=== PATIENT | female | born 1950 | race Caucasian/White ===

== ENCOUNTER → 2019-08-03 | Outpatient (CLI) | payer BC ==
--- NOTE | 2019-08-07 12:14 | HM ---
HOLTER MONITOR REPORT A 68-year-old female complaining of palpitations, shortness of breath. A 48 hour Holter monitor shows sinus mechanism, heart ranging from 57-115 beats, average 75 beats per minute, occasional PACs and sinus arrhythmia. No significant arrhythmias. CHALO / NELIN: [id number] /
== END | disposition home or self-care (01) ==
LOC: RADECHMAIN 12:02
PROVIDERS: ATTEND Internal Medicine
DX: R00.2 Palpitations (principal); R06.02 Shortness of breath
CPT/HCPCS: 93225; 93226

== ENCOUNTER → 2020-03-21 | Outpatient (CLI) | payer BC ==
[2020-03-21 12:51] VITALS: BP 153/82; PULSE 88; RESP 18; TEMP 97.8
--- NOTE | 2020-04-18 14:32 | P.PAINCN ---
History of Present Illness - Reason for Consult Consult date: 03/21/20 - History of Present Illness 69-year-old female who presents to the [facility] pain clinic. She was previously a patient of Dr. Cosme Booth. She has a diagnosis of complex regional pain syndrome of the right upper extremity. Dr. Booth had been treating her with stellate ganglion blocks. She had a series of 8 done once weekly over 5 years ago. She states that her pain completely resolved after the eighth injection. It has lasted up until 2-3 months ago. She describes very similar symptoms to the initial onset of her CRPS. She is having allodynia, hyperalgesia, blanching of her skin in her right forearm down to her right hand. She is requesting another stellate ganglion block series. Review of Systems 14 pt review of systems negative except as mentioned in HPI Past Medical History Past Medical History: Hyperlipidemia, Musculoskeletal Disorder, Osteoarthritis (OA), Thyroid Disorder Additional Past Medical History / Comment(s): Hx arrythmia 2019 - told to stop levoxyl, now improved. Old hx RSD in Rt arm w/ tx; pain resumed recently in arm, sl tingling & edema. History of Any Multi-Drug Resistant Organisms: None Reported Past Surgical History: Hysterectomy Additional Past Surgical History / Comment(s): Eye surg as infant. Multiple pain proc w/ stellate ganglion nerve blocks. Past Anesthesia/Blood Transfusion Reactions: No Reported Reaction Smoking Status: Former smoker Past Alcohol Use History: Daily Additional Past Alcohol Use History / Comment(s): Smoked on/off since age 15, 1/2 ppd est, quit 2017. Couple glasses of wine daily. Past Drug Use History: None Reported - Past Family History Mother Family Medical History: No Reported History Medications and Allergies Home Medications Medication Instructions Recorded Confirmed Type Ascorbic Acid/Multivit-Min 1,000 mg PO DAILY 03/18/20 04/01/20 History [Emergen-C 1,000 mg Packet] Aspirin [Adult Low Dose Aspirin EC] 81 mg PO DAILY 03/18/20 04/01/20 History Atorvastatin Calcium [Lipitor] 20 mg PO DAILY 03/18/20 04/01/20 History Calcium Carbonate/Vitamin D3 2 each PO DAILY 03/18/20 04/01/20 History [Calcium 600-Vit D3 100 mcg (400 Iu)] Multivitamins, Thera [Multivitamin 1 tab PO DAILY 03/18/20 04/01/20 History (formulary)] Acetaminophen/Diphenhydramine 1 tab PO HS 04/01/20 04/01/20 History [Tylenol PM 500-25mg] Ascorbic Acid/Multivit-Min 1,000 mg PO DAILY 04/01/20 04/01/20 History [Emergen-C 1,000 mg Packet] Allergies Allergy/AdvReac Type Severity Reaction Status Date / Time codeine Allergy Nausea & Verified 04/05/20 06:39 Vomiting Penicillins Allergy Rash/Hives Verified 04/05/20 06:39 Physical Exam Vitals: Vital Signs Temp Pulse Resp BP Pulse Ox 03/21/20 12:45 97.8 F 88 18 153/82 99 - Constitutional General appearance: average body habitus, cooperative, thin - EENT Eyes: PERRLA, fundus normal ENT: hearing grossly normal, normal oropharynx - Neck Neck: normal ROM - Cardiovascular Rhythm: regular - Musculoskeletal ROM preserved bilateral upper extremities. Strenght equal and symmetrical. - Psychiatric Psychiatric: A&O x's 3, appropriate affect, intact judgment & insight hyperalgesia, and hyperpigmentation along lateral aspect of right hand. Diminshed hair growth, glossy skin appearance. Assessment and Plan Assessment: 1. Complex regional pain syndrome type 2 - plan is to proceed with stellate ganglion blocks on the right. Patient aware of the risks and benefits of the procedure. we discussed in detail. I also mentioned patient may not be able to get 8 stellate ganglion block week after week like before. She understands. PQRS Measure Charge Sheet PQRS Narrative: Blood Pressure 153/82 Pain Intensity [Right Arm] 8 Scale Used Numeric (1 - 10) Hx Alcohol Use (MH) Yes Home Medications: Ambulatory Orders Ascorbic Acid/Multivit-Min [Emergen-C 1,000 mg Packet] 1,000 mg PO DAILY 03/18/20 Aspirin [Adult Low Dose Aspirin EC] 81 mg PO DAILY 03/18/20 Atorvastatin Calcium [Lipitor] 20 mg PO DAILY 03/18/20 Calcium Carbonate/Vitamin D3 [Calcium 600-Vit D3 100 mcg (400 Iu)] 2 each PO DAILY 03/18/20 Multivitamins, Thera [Multivitamin (formulary)] 1 tab PO DAILY 03/18/20 Acetaminophen/Diphenhydramine [Tylenol PM 500-25mg] 1 tab PO HS 04/01/20 Ascorbic Acid/Multivit-Min [Emergen-C 1,000 mg Packet] 1,000 mg PO DAILY 04/01/20
== END | disposition home or self-care (01) ==
LOC: PNWHC3 12:39
PROVIDERS: ATTEND Anesthesiology
DX: G56.41 Causalgia of right upper limb (principal); E78.5 Hyperlipidemia, unspecified; M19.90 Unspecified osteoarthritis, unspecified site; Z79.82 Long term (current) use of aspirin; Z79.899 Other long term (current) drug therapy; Z88.0 Allergy status to penicillin; Z88.5 Allergy status to narcotic agent
CPT/HCPCS: 99211

== ENCOUNTER 2020-04-05 06:27 | Day surgery (SDC) | payer BC ==
[2020-04-01 16:21] VITALS: BMI 23.3
[2020-04-05 06:50] VITALS: TEMP 97
[2020-04-05] MEDS ORDERED: LACTATED RINGERS 1,000 ML IV ONE (06:50)
[2020-04-05] MEDS ORDERED: ROPIVACAINE 5MG/ML 20ML VIAL ONE (07:25)
[2020-04-05] MEDS ORDERED: methylPREDNISolone ACETATE 40 MG/ML 1 ML VIAL ONE (07:25)
[2020-04-05] MEDS ORDERED: MIDAZOLAM 2 MG/2 ML VIAL ONE (07:25)
[2020-04-05] MEDS ORDERED: fentaNYL (PF) 50 MCG/ML 2 ML AMP ONE (07:25)
[2020-04-05] MEDS ORDERED: IV FLUID CONTINUATION 700 ML IV ONE (07:48)
[2020-04-05 08:13] VITALS: BP 145/84; PULSE 80; RESP 20
--- NOTE | 2020-04-05 15:48 | P.PCN ---
Date of Procedure: 04/05/20 Description of Procedure: Procedure note: Stellate ganglion block Attending physician: Ray Valentino MD Preoperative Diagnosis: CRPS1 Postoperative Diagnosis: CRPS1 Sedation: local anesthetic with 1% lidocaine along with fentanyl and versed, sedation time EBL: 0 ULTRASOUND WAS USED The patient with a clinical picture consistent with complex regional pain syndrome of the right upper extremity The patient was greeted in the preprocedure holding area. After verification of the availability of a special education bus driver and nothing by mouth status, the risks benefits and alternatives to the procedure were reviewed with the patient. Verbal informed consent was obtianed as well as a written informed consent placed in the chart. Prior to the procedure time out was done verify correct patient, procedure, site, positioning. An IV line was placed preoperatively and normal saline was attached to the patient. The patient was laid supine on the stretcher. Routine monitors were applied including EKG leads, blood pressure cuff, and pulse oximetry. Ultrasound was used to identify the trachea, thyroid gland, jugular vein, carotid artery and anterior tubercle of C6 on the right side. The longus coli muscle and fascia were also clearly visible. The skin over this site was prepped and draped in the usual sterile fashion. The overlying skin and subcutaneous tissue was anesthetized with 2 mL of 1% lidocaine using a 27- gauge needle. Then a 22-gauge 100 mm Pajunk needle was advanced under ultrasound guidance from the lateral to medial using in plane technique over the anterior tubercle of C6 until the tip was situated in the subfascial plane in the longus coli muscle. Hydrodissection with normal saline was utilized to confirm placement of the needle tip in this location. At this point a total of 10 mL volume of treatment injectate consisting of 9 mL of ropivacaine 0.5% and 40 mg of Depo-Medrol was injected easily. The needle was then flushed with 1 mL of preservative free normal saline. The needle insertion site was dressed appropriately. The patient remained hemodynamically stable, and there were no complications. Patient was taken to the recovery room with her monitored for a brief period of time. Patient tolerated the procedure well and was discharged home in stable condition with post procedure instructions. Followup: repeat in 1-2 weeks
== END 2020-04-05 08:15 | disposition home or self-care (01) ==
LOC: ORPAIN 06:27
PROVIDERS: ATTEND Anesthesiology
DX: G90.511 Complex regional pain syndrome I of right upper limb (principal); Z88.5 Allergy status to narcotic agent; Z88.0 Allergy status to penicillin
CPT/HCPCS: 64510; J2250; J1030; J3010; J2795; 99152

== ENCOUNTER 2020-04-26 06:10 | Day surgery (SDC) | payer BC ==
[2020-04-21 15:20] VITALS: BMI 23.3
[~2020-04-26 06:10] MED LIST: LACTATED RINGERS 1,000 ML IV SCH
[2020-04-26 06:37] VITALS: RESP 16; TEMP 97.8
[2020-04-26] MEDS ORDERED: LIDOCAINE 1% (10MG/ML) FOR IV START INTRADERMA ONE (06:38)
[2020-04-26] MEDS ORDERED: ROPIVACAINE 5MG/ML 20ML VIAL ONE (07:22)
[2020-04-26] MEDS ORDERED: methylPREDNISolone ACETATE 40 MG/ML 1 ML VIAL ONE (07:22)
[2020-04-26] MEDS ORDERED: MIDAZOLAM 2 MG/2 ML VIAL ONE (07:22)
[2020-04-26] MEDS ORDERED: fentaNYL (PF) 50 MCG/ML 2 ML AMP ONE (07:22)
[2020-04-26] MEDS ORDERED: IV FLUID CONTINUATION 1,000 ML IV ONE (07:42)
--- NOTE | 2020-04-26 07:44 | P.PCN ---
Date of Procedure: 04/26/20 Procedure(s) Performed: PROCEDURES: Right Stellate ganglion block under ultrasopund guidance. PREOPERATIVE DIAGNOSIS: Complex regional pain syndrome type I Right upper extremity POSTOPERATIVE DIAGNOSIS: Same as the preop diagnosis ANESTHESIA: Moderate sedation with intravenous Versed 3 mg and Fentanyl 100 Mcg EBL: None. COMPLICATIONS: None. INDICATION: The patient presents with H&N cancer and symptoms suggestive of CRPS of the right arm here for diagnostic and therapeutic block PROCEDURE DESCRIPTION: The patient with a clinical picture consistent with complex regional pain syndrome of the right upper extremity The patient was greeted in the preprocedure holding area. After verification of the availability of a driver guide and nothing by mouth status, the risks benefits and alternatives to the procedure were reviewed with the patient. Verbal informed consent was obtianed as well as a written informed consent placed in the chart. Prior to the procedure time out was done verify correct patient, procedure, site, positioning. An IV line was placed preoperatively and normal saline was attached to the patient. The patient was laid supine on the stretcher. Routine monitors were applied including EKG leads, blood pressure cuff, and pulse oximetry. Ultrasound was used to identify the trachea, thyroid gland, jugular vein, carotid artery and anterior tubercle of C6 on the right side. The longus coli muscle and fascia were also clearly visible. The skin over this site was prepped and draped in the usual sterile fashion. The overlying skin and subcutaneous tissue was anesthetized with 2 mL of 1% lidocaine using a 27- gauge needle. Then a 22-gauge 100 mm Pajunk needle was advanced under ultrasound guidance from the lateral to medial using in plane technique over the anterior tubercle of C6 until the tip was situated in the subfascial plane in the longus coli muscle. Hydrodissection with normal saline was utilized to confirm placement of the needle tip in this location. At this point a total of 10 mL volume of treatment injectate consisting of 9 mL of ropivacaine 0.5% and 40 mg of Depo-Medrol was injected easily. The needle was then flushed with 1 mL of preservative free normal saline. The needle insertion site was dressed appropriately. The pa tient remained hemodynamically stable, and there were no complications. Patient was taken to the recovery room with her monitored for a brief period of time. Patient tolerated the procedure well and was discharged home in stable condition with post procedure instructions. Followup: repeat in 1-2 weeks
[2020-04-26 07:58] VITALS: BP 120/57; PULSE 70
== END 2020-04-26 08:15 | disposition home or self-care (01) ==
LOC: ORPAIN 06:10
PROVIDERS: ATTEND Specialist
DX: G90.511 Complex regional pain syndrome I of right upper limb (principal); Z90.710 Acquired absence of both cervix and uterus; Z88.0 Allergy status to penicillin; Z88.5 Allergy status to narcotic agent
CPT/HCPCS: 64510; J2250; J1030; J3010; J2795; 99152

== ENCOUNTER 2020-05-12 07:24 | Day surgery (SDC) | payer BC ==
[2020-05-09 15:24] VITALS: BMI 23.2
[2020-05-12 07:44] VITALS: TEMP 97.2
[2020-05-12] MEDS ORDERED: LIDOCAINE 1% (10MG/ML) FOR IV START INTRADERMA ONE (07:50)
[2020-05-12] MEDS ORDERED: ROPIVACAINE 5MG/ML 20ML VIAL ONE (08:11)
[2020-05-12] MEDS ORDERED: MIDAZOLAM 2 MG/2 ML VIAL ONE (08:11)
[2020-05-12] MEDS ORDERED: methylPREDNISolone ACETATE 40 MG/ML 1 ML VIAL ONE (08:11)
[2020-05-12] MEDS ORDERED: fentaNYL (PF) 50 MCG/ML 2 ML AMP ONE (08:11)
--- NOTE | 2020-05-12 08:28 | P.PCN ---
Date of Procedure: 05/12/20 Procedure(s) Performed: PROCEDURES: Right Stellate ganglion block under ultrasopund guidance. PREOPERATIVE DIAGNOSIS: Complex regional pain syndrome type I Right upper extremity POSTOPERATIVE DIAGNOSIS: Same as the preop diagnosis ANESTHESIA: Moderate sedation with intravenous Versed 3 mg and Fentanyl 100 Mcg EBL: None. COMPLICATIONS: None. INDICATION: The patient presents with H&N cancer and symptoms suggestive of CRPS of the right arm here for diagnostic and therapeutic block PROCEDURE DESCRIPTION: The patient with a clinical picture consistent with complex regional pain syndrome of the right upper extremity The patient was greeted in the preprocedure holding area. After verification of the availability of a ready mix truck driver and nothing by mouth status, the risks benefits and alternatives to the procedure were reviewed with the patient. Verbal informed consent was obtianed as well as a written informed consent placed in the chart. Prior to the procedure time out was done verify correct patient, procedure, site, positioning. An IV line was placed preoperatively and normal saline was attached to the patient. The patient was laid supine on the stretcher. Routine monitors were applied including EKG leads, blood pressure cuff, and pulse oximetry. Ultrasound was used to identify the trachea, thyroid gland, jugular vein, carotid artery and anterior tubercle of C6 on the right side. The longus coli muscle and fascia were also clearly visible. The skin over this site was prepped and draped in the usual sterile fashion. The overlying skin and subcutaneous tissue was anesthetized with 2 mL of 1% lidocaine using a 27- gauge needle. Then a 22-gauge 50 mm Pajunk needle was advanced under ultrasound guidance from the lateral to medial using in plane technique over the anterior tubercle of C6 until the tip was situated in the subfascial plane in the longus coli muscle. Hydrodissection with normal saline was utilized to confirm placement of the needle tip in this location. At this point a total of 10 mL volume of treatment injectate consisting of 9 mL of ropivacaine 0.5% and 40 mg of Depo-Medrol was injected easily. The needle was then flushed with 1 mL of preservative free normal saline. The needle insertion site was dressed appropriately. The patient remained hemodynamically stable, and there were no complications. Patient was taken to the recovery room with her monitored for a brief period of time. Patient tolerated the procedure well and was discharged home in stable condition with post procedure instructions. Followup: repeat in 1-2 weeks
[2020-05-12] MEDS ORDERED: IV FLUID CONTINUATION 600 ML IV ONE (08:31)
[2020-05-12 08:46] VITALS: BP 114/76; PULSE 76; RESP 20
== END 2020-05-12 09:01 | disposition home or self-care (01) ==
LOC: ORPAIN 07:24
PROVIDERS: ATTEND Specialist
DX: G90.511 Complex regional pain syndrome I of right upper limb (principal); Z88.5 Allergy status to narcotic agent; Z88.0 Allergy status to penicillin
CPT/HCPCS: 64510; 76942; J2250; J1030; J3010; J2795; 99152

== ENCOUNTER → 2020-06-01 | Outpatient (CLI) | payer BC ==
[2020-06-01 13:59] VITALS: BP 128/79; PULSE 82; RESP 16; TEMP 97.7
--- NOTE | 2020-06-01 14:00 | P.PN ---
Subjective Progress Note Date: 06/01/20 Brenda is 69-year-old female who presents today for follow-up after having 3 stellate ganglion blocks. She had CRPS of the right arm from a tendon rupture. She reports that she has about 90-95% relief from the current injections. She is very happy with the results. She is not using any medications. She denies any significant allodynia or any significant pain in the arm. She's been able to wear long sleeves again. She been able to lift objects. Review of Systems: Denies any New chest pain, short of breath, Nausea/vomitting, abdominal pain, bowel or bladder incontinence, or any overt new neurologic symptoms in his upper or lower extremities. Objective - Exam PHYSICAL EXAM: Constitutional: Awake and alert no distress Cardiovascular exam: Regular rate, no lower extremity edema, palpable pulses bilaterally Respiratory exam: No audible wheezing, no accessory muscle usage Right upper extremity: Skin appears normal, there is no allodynia, range of motion is normal. Strength is normal. Slight bulge over the area of the tendon rupture in the mid forearm. Neuro exam: Normal sensation bilateral upper and lower extremities. Deep tendon reflexes are 2+ bilaterally. Psychiatric exam: Cooperative, good insight Assessment and Plan Assessment: CRPS right upper extremity Plan: Patient will follow up as needed in the future. If we need to repeat the injections she will be giving us a call at that time.
== END ==
LOC: PNWHC3 13:46
PROVIDERS: ATTEND Hospitalist
DX: G90.511 Complex regional pain syndrome I of right upper limb (principal)
CPT/HCPCS: 99211

== ENCOUNTER → 2020-07-06 | Outpatient (CLI) | payer BC ==
--- NOTE | 2020-07-06 14:26 | P.PAINPG ---
Subjective Progress Note Date: 07/06/20 Brenda is 69-year-old female who presents today for follow-up. To recap she has had 3 stellate ganglion blocks. She had CRPS of the right arm from a tendon rupture. She reported that she had about 90-95% relief from the current injections. General her injections of work very well, however unfortunately her pain is returned. Injections last about a month until pain come back. She is experiencing decreased range of motion, allodynia and a warm feeling in her right arm. Not doing any current physical therapy. She is very happy with the results. She is not using any medications. She denies any significant allodynia or any significant pain in the arm. She's been able to wear long sleeves again. She been able to lift objects. Review of Systems: Denies any New chest pain, short of breath, Nausea/vomitting, abdominal pain, bowel or bladder incontinence, or any overt new neurologic sym ptoms in his upper or lower extremities. Objective - Exam PHYSICAL EXAM: Constitutional: Awake and alert no distress Cardiovascular exam: Regular rate, no lower extremity edema, palpable pulses bilaterally Respiratory exam: No audible wheezing, no accessory muscle usage Right upper extremity: Skin appears normal, there is no allodynia, range of motion is limited Strength is decreased Slight bulge over the area of the tendon rupture in the mid forearm. Neuro exam: Normal sensation bilateral upper and lower extremities. Deep tendon reflexes are 2+ bilaterally. Psychiatric exam: Cooperative, good insight Assessment and Plan Assessment: CRPS right upper extremity Plan: Repeat stellate ganglion block on the right side. Patient had a question in terms of how many of these she needs until she gets full relief. She commented that in the past she had 8 of them total and then she had good relief for 5 years. I told her that in general it is hard to say how many of these she will need until she has long lasting relief, commenting that she may never have long- lasting relief and may just need these repeated over and over. There is a thought to performing chemical neurolysis of the stellate ganglion however at this time we will repeat the injection and consider that option in the future.. I have spent 28 minutes on patient care today. The time was used to review the medical records including relevant urine studies and prescription history, review of the available imaging, evaluation and examination of the patient, coordination of care with medical staff and if applicable referring physicians, as well as creation of the medical record. Objective - Vital Signs Vital signs: Intake & Output 07/04/20 07/05/20 07/05/20 18:59 06:59 18:59 Weight 56.245 kg PQRS Measure Charge Sheet PQRS Narrative: Pain Intensity [Neck] 8 Hx Alcohol Use (MH) Yes: Daily Home Medications: Ambulatory Orders Aspirin [Adult Low Dose Aspirin EC] 81 mg PO DAILY 03/18/20 Atorvastatin Calcium [Lipitor] 20 mg PO DAILY 03/18/20 Calcium Carbonate/Vitamin D3 [Calcium 600-Vit D3 100 mcg (400 Iu)] 2 each PO DAILY 03/18/20 Multivitamins, Thera [Multivitamin (formulary)] 1 tab PO DAILY 03/18/20 Acetaminophen/Diphenhydramine [Tylenol PM 500-25mg] 1 tab PO HS 04/01/20 Ascorbic Acid/Multivit-Min [Emergen-C 1,000 mg Packet] 1,000 mg PO DAILY 04/01/20 Controlled Substance Measures - Controlled Substance Measures Is patient prescribed a controlled substance at discharge?: No
[2020-07-06 14:29] VITALS: BP 117/70; PULSE 81; RESP 18; TEMP 97.4
== END ==
LOC: PNWHC3 13:49
PROVIDERS: ATTEND Anesthesiology
DX: G90.511 Complex regional pain syndrome I of right upper limb (principal)
CPT/HCPCS: 99211

== ENCOUNTER 2020-07-26 06:06 | Day surgery (SDC) | payer BC ==
[2020-07-25 09:30] VITALS: BMI 22.6
[2020-07-26] MEDS ORDERED: LACTATED RINGERS 1,000 ML IV ONE ×2 (06:18)
[2020-07-26] MEDS ORDERED: LACTATED RINGERS 1,000 ML IV SCH (06:23)
[2020-07-26] MEDS ORDERED: LIDOCAINE 1% (10MG/ML) FOR IV START INTRADERMA ONE (06:30)
[2020-07-26 06:36] VITALS: TEMP 97.9
[2020-07-26] MEDS ORDERED: MIDAZOLAM 2 MG/2 ML VIAL ONE (07:07)
[2020-07-26] MEDS ORDERED: ROPIVACAINE 5MG/ML 20ML VIAL ONE (07:07)
[2020-07-26] MEDS ORDERED: fentaNYL (PF) 50 MCG/ML 2 ML AMP ONE (07:07)
[2020-07-26] MEDS ORDERED: methylPREDNISolone ACETATE 40 MG/ML 1 ML VIAL ONE (07:07)
[2020-07-26] MEDS ORDERED: IV FLUID CONTINUATION 1,000 ML IV ONE (07:25)
[2020-07-26 07:53] VITALS: BP 110/78; PULSE 78; RESP 18
--- NOTE | 2020-07-26 07:53 | P.PCN ---
Date of Procedure: 07/26/20 Procedure(s) Performed: PROCEDURES: Right Stellate ganglion block under ultrasopund guidance. PREOPERATIVE DIAGNOSIS: Complex regional pain syndrome type I Right upper extremity POSTOPERATIVE DIAGNOSIS: Same as the preop diagnosis ANESTHESIA: Moderate sedation with intravenous Versed 2 mg and Fentanyl 100 Mcg EBL: None. COMPLICATIONS: None. INDICATION: The patient presents with H&N cancer and symptoms suggestive of CRPS of the right arm here for diagnostic and therapeutic block PROCEDURE DESCRIPTION: The patient with a clinical picture consistent with complex regional pain syndrome of the right upper extremity The patient was greeted in the preprocedure holding area. After verification of the availability of a wheat combine driver and nothing by mouth status, the risks benefits and alternatives to the procedure were reviewed with the patient. Verbal informed consent was obtianed as well as a written informed consent placed in the chart. Prior to the procedure time out was done verify correct patient, procedure, site, positioning. An IV line was placed preoperatively and normal saline was attached to the patient. The patient was laid supine on the stretcher. Routine monitors were applied including EKG leads, blood pressure cuff, and pulse oximetry. Ultrasound was used to identify the trachea, thyroid gland, jugular vein, carotid artery and anterior tubercle of C6 on the right side. The longus coli muscle and fascia were also clearly visible. The skin over this site was prepped and draped in the usual sterile fashion. The overlying skin and subcutaneous tissue was anesthetized with 2 mL of 1% lidocaine using a 27- gauge needle. Then a 22-gauge 50 mm Pajunk needle was advanced under ultrasound guidance from the lateral to medial using in plane technique over the anterior tubercle of C6 until the tip was situated in the subfascial plane in the longus coli muscle. Hydrodissection with normal saline was utilized to confirm placement of the needle tip in this location. At this point a total of 10 mL volume of treatment injectate consisting of 9 mL of ropivacaine 0.5% and 40 mg of Depo-Medrol was injected easily. The needle was then flushed with 1 mL of preservative free normal saline. The needle insertion site was dressed appropriately. The patient remained hemodynamically stable, and there were no complications. Patient was taken to the recovery room with her monitored for a brief period of time. Patient tolerated the procedure well and was discharged home in stable condition with post procedure instructions. Followup: repeat in 2-3 weeks ,in the future would consider doing pulsed RFA of the right stellate ganglion block ,if it is approved by her insurance
== END 2020-07-26 07:59 | disposition home or self-care (01) ==
LOC: ORPAIN 06:06
PROVIDERS: ATTEND Specialist
DX: G90.511 Complex regional pain syndrome I of right upper limb (principal); Z88.5 Allergy status to narcotic agent; Z88.0 Allergy status to penicillin
CPT/HCPCS: 64510; J2250; J1030; J3010; J2795; 99152

== ENCOUNTER → 2020-08-22 | Outpatient (CLI) | payer BC ==
[2020-08-22 13:52] VITALS: BP 118/77; PULSE 70; RESP 16; TEMP 98
--- NOTE | 2020-08-22 14:08 | P.PN ---
Subjective Progress Note Date: 08/22/20 This is 69-year-old female, She has a diagnosis of complex regional pain syndrome of the right upper extremity. Previously we have done stellate ganglion blocks. x4 she gets excellent pain relief after each block , she had 0 pain after the block for more than 2 weeks . She is having allodynia, hyperal gesia, blanching of her skin in her right forearm down to her right hand. She is requesting another stellate ganglion block series. - Past Family History Mother Family Medical History: No Reported History - Constitutional General appearance: average body habitus, cooperative, thin - EENT Eyes: PERRLA, fundus normal ENT: hearing grossly normal, normal oropharynx - Neck Neck: normal ROM - Cardiovascular Rhythm: regular - Musculoskeletal ROM preserved bilateral upper extremities. Strenght equal and symmetrical. Positive allodynia ,and dysesthesia right upper extremity - Psychiatric Psychiatric: A&O x's 3, appropriate affect, intact judgment & insight hyperalgesia, and hyperpigmentation along lateral aspect of right hand. Diminshed hair growth, glossy skin appearance. Assessment and Plan Assessment: 1. Complex regional pain syndrome plan is to proceed with pulse radiofrequency stellate ganglion blocks on the right. Patient aware of the risks and benefits of the procedure. we discussed in detail. Objective - Vital Signs Vital signs: Vital Signs Temp 98.0 F 08/22/20 13:48 Pulse 70 08/22/20 13:48 Resp 16 08/22/20 13:48 BP 118/77 08/22/20 13:48 Pulse Ox 97 08/22/20 13:48
== END ==
LOC: PNWHC3 13:18
PROVIDERS: ATTEND Specialist
DX: G90.50 Complex regional pain syndrome I, unspecified (principal); Z88.0 Allergy status to penicillin; Z88.5 Allergy status to narcotic agent
CPT/HCPCS: 99211

== ENCOUNTER 2020-09-20 06:17 | Day surgery (SDC) | payer BC ==
[2020-09-16 16:10] VITALS: BMI 21.4
[2020-09-20 06:49] VITALS: TEMP 97.9
[2020-09-20] MEDS ORDERED: LACTATED RINGERS 1,000 ML IV ONE ×2 (07:00)
[2020-09-20] MEDS ORDERED: LIDOCAINE 1% (10MG/ML) FOR IV START INTRADERMA ONE (07:01)
[2020-09-20] MEDS ORDERED: ROPIVACAINE 5MG/ML 20ML VIAL ONE (07:30)
[2020-09-20] MEDS ORDERED: DEXAMETHASONE SOD PHOSPHATE 10 MG/ML 1 ML VIAL ONE (07:30)
[2020-09-20] MEDS ORDERED: MIDAZOLAM 2 MG/2 ML VIAL ONE (07:30)
[2020-09-20] MEDS ORDERED: fentaNYL (PF) 50 MCG/ML 2 ML AMP ONE (07:30)
[2020-09-20] MEDS ORDERED: IV FLUID CONTINUATION 1,000 ML IV ONE ×3 (07:58)
--- NOTE | 2020-09-20 08:00 | P.PCN ---
Date of Procedure: 09/20/20 Description of Procedure: Procedure note: Stellate ganglion block Attending physician: Tani Palacios MD Preoperative Diagnosis: CRPS1 Postoperative Diagnosis: CRPS1 Sedation: local anesthetic with 1% lidocaine along with fentanyl and versed, EBL: 0 ULTRASOUND WAS USED The patient with a clinical picture consistent with complex regional pain syndrome of the right upper extremity The patient was greeted in the preprocedure holding area. After verification of the availability of a route cdl driver and nothing by mouth status, the risks benefits and alternatives to the procedure were reviewed with the patient. Verbal informed consent was obtianed as well as a written informed consent placed in the chart. Prior to the procedure time out was done verify correct patient, procedure, site, positioning. An IV line was placed preoperatively and normal saline was attached to the patient. The patient was laid supine on the stretcher. Routine monitors were applied including EKG leads, blood pressure cuff, and pulse oximetry. Ultrasound was used to identify the trachea, thyroid gland, jugular vein, carotid artery and anterior tubercle of C6 on the right side. The longus coli muscle and fascia were also clearly visible. The skin over this site was prepped and draped in the usual sterile fashion. The overlying skin and subcutaneous tissue was anesthetized with 2 mL of 1% lidocaine using a 27- gauge needle. Then a 22-gauge 100 mm Pajunk needle was advanced under ultrasound guidance from the lateral to medial using in plane technique over the anterior tubercle of C6 until the tip was situated in the subfascial plane in the longus coli muscle. Hydrodissection with normal saline was utilized to confirm placement of the needle tip in this location as well as direct visualization of solution spread from the needle tip. At this point a total of 10 mL volume of treatment injectate consisting of 9 mL of ropivacaine 0.5% and 10 mg of Dexamethasone was injected easily with frequent negative aspiration every 2ml and pauses for patient comfort. The needle insertion site was dressed appropriately. The patient remained hemodynamically stable, and there were no complications. Ultrasound guidance was utilized for direct continuous visualization of block needle as well as direct medication visualization of medication spread. Patient was taken to the recovery room with her monitored for a brief period of time. Patient tolerated the procedure well and was discharged home in stable condition with post procedure instructions. Followup: repeat in 1-2 weeks
[2020-09-20 08:01] VITALS: RESP 18
[2020-09-20 08:22] VITALS: BP 111/66; PULSE 67
== END 2020-09-20 08:30 | disposition home or self-care (01) ==
LOC: ORPAIN 06:17
PROVIDERS: ATTEND Anesthesiology
DX: G90.511 Complex regional pain syndrome I of right upper limb (principal)
CPT/HCPCS: 64510; J2250; J1100; J3010; J2795; 99152

== ENCOUNTER 2020-09-20 20:44 | Emergency (ER) | payer BC, MEDICARE ==
[2020-09-20 20:55] VITALS: TEMP 98
[2020-09-20] MEDS ORDERED: SODIUM CHLORIDE 0.9% 1,000 ML IV STA (21:50)
[2020-09-20] MEDS ORDERED: ONDANSETRON 4 MG/2 ML VIAL IVP STA (21:50)
[2020-09-20] MEDS ORDERED: KETOROLAC 15 MG/ML 1 ML VIAL IVP STA (21:50)
[2020-09-20 22:23] LABS: Basophils % (A) 0 %; Eosinophils # (A) 0.1 k/uL (0-0.7); Eosinophils % (A) 1 %; HCT 40.3 % (34.0-46.0); HGB 13.8 gm/dL (11.4-16.0); Lymphocytes # (A) 0.9 k/uL (1.0-4.8); Lymphocytes % (A) 12 %; MCH 32.2 pg (25.0-35.0); MCHC 34.3 g/dL (31.0-37.0); MCV 93.9 fL (80.0-100.0); Monocytes # (A) 0.2 k/uL (0-1.0); Monocytes % (A) 3 %; Neutrophils # (A) 6.1 k/uL (1.3-7.7); Neutrophils % (A) 84 %; Platelet Count 372 k/uL (150-450); RBC 4.29 m/uL (3.80-5.40); RDW 11.9 % (11.5-15.5); WBC 7.3 k/uL (3.8-10.6)
[2020-09-20 22:32] LABS: ALT 19 U/L (4-34); AST 22 U/L (14-36); African American GFR (CKD) >90 (>60 ml/min/1.73 sqM); Albumin 4.6 g/dL (3.5-5.0); Alkaline Phosphatase 72 U/L (38-126); Anion Gap 7 mmol/L; Blood Urea Nitrogen 12 mg/dL (7-17); Calcium 9.9 mg/dL (8.4-10.2); Carbon Dioxide 26 mmol/L (22-30); Chloride 104 mmol/L (98-107); Creatine Kinase 34 U/L (30-135); Glucose 134 mg/dL (74-99); Magnesium 2.4 mg/dL (1.6-2.3); Non-African American GFR(CKD) >90 (>60 ml/min/1.73 sqM); Phosphorus 2.9 mg/dL (2.5-4.5); Potassium 3.6 mmol/L (3.5-5.1); Sodium 137 mmol/L (137-145); Total Bilirubin 0.2 mg/dL (0.2-1.3); Total Protein 7.2 g/dL (6.3-8.2)
--- NOTE | 2020-09-20 23:05 | CT ---
EXAMINATION TYPE: CT brain veronica solorio con DATE OF EXAM: 09/20/2020 COMPARISON: None HISTORY: fragoso with nausea. no know injury CT DLP: 1280.6 mGycm Automated exposure control for dose reduction was used. Images obtained from the level of the thoracic inlet to the vertex of the brain with no contrast. There is some cerebral cortical atrophy. There is no mass effect nor midline shift. There is no sign of intracranial hemorrhage. Calvarium is intact. There is normal aeration of the mastoid sinuses. The cervical vertebra have normal alignment. Posterior elements are intact. There is multilevel cervi cliff hypertrophic facet arthropathy. The skull base is intact. IMPRESSION: Minor degenerative changes in the cervical spine. No fracture. Mild cerebral cortical atrophy. No acute intracranial abnormality.
[2020-09-20] MEDS ORDERED: LORazepam 2 MG/ML INJ IV STA (23:09)
[2020-09-20] MEDS ORDERED: MORPHINE SULFATE 4 MG/ML SYRINGE IVP STA (23:09)
--- NOTE | 2020-09-20 23:15 | ED ---
Headache HPI - General Chief Complaint: Headache Stated Complaint: Head pain Time Seen by Provider: 09/20/20 21:29 Source: RN notes reviewed, old records reviewed Mode of arrival: ambulatory Limitations: no limitations - History of Present Illness Initial Comments: This is a 69-year-old female presented today for evaluation. Patient evaluation regards to headache. Numbness and tingling nausea vomiting weakness. Patient does not feel well. States she received a nerve block earlier today for complex regional pain syndrome. This is resulted in symptoms that she's never experienced before. She's had multiple instances of having this nerve block performed multiple times here without any complication. Patient denying any neurological complaint has full range of motion strength and sensation both upper extremities. No shortness of breath, patient just presented mainly with headache today headache patient states she does not normally get headaches MD Complaint: headache - Related Data Home Medications Medication Instructions Recorded Confirmed Aspirin [Adult Low Dose Aspirin EC] 81 mg PO DAILY 03/18/20 09/20/20 Atorvastatin Calcium [Lipitor] 20 mg PO DAILY 03/18/20 09/20/20 Calcium Carbonate/Vitamin D3 2 tab PO DAILY 03/18/20 09/20/20 [Calcium 600-Vit D3 100 mcg (400 Iu)] Multivitamins, Thera [Multivitamin 1 tab PO DAILY 03/18/20 09/20/20 (formulary)] Acetaminophen/Diphenhydramine 2 tab PO HS 04/01/20 09/20/20 [Tylenol PM 500-25mg] Ascorbic Acid/Multivit-Min 1 packet PO DAILY 04/01/20 09/20/20 [Emergen-C 1,000 mg Packet] Allergies Allergy/AdvReac Type Severity Reaction Status Date / Time codeine Allergy Nausea & Verified 09/20/20 22:21 Vomiting Penicillins Allergy Rash/Hives Verified 09/20/20 22:21 Review of Systems ROS Statement: Those systems with pertinent positive or pertinent negative responses have been documented in the HPI. ROS Other: All systems not noted in ROS Statement are negative. Past Medical History Past Medical History: Hyperlipidemia, Musculoskeletal Disorder, Osteoarthritis (OA) Additional Past Medical History / Comment(s): Hx arrythmia 2019 - told to stop levoxyl, now improved. Old hx RSD in right arm w/ tx. FULL COVID VACCINATION. "bug bite" lt arm swollen placed on steroids and doxycycline-now resolved History of Any Multi-Drug Resistant Organisms: None Reported Past Surgical History: Hysterectomy Additional Past Surgical History / Comment(s): Eye surgery as an . Multiple pain procedures w/ stellate ganglion nerve blocks. Past Anesthesia/Blood Transfusion Reactions: No Reported Reaction Past Psychological History: No Psychological Hx Reported Smoking Status: Former smoker - Past Family History Mother Family Medical History: No Reported History General Exam Limitations: no limitations General appearance: alert, in no apparent distress Head exam: Present: atraumatic, normocephalic, normal inspection Eye exam: Present: normal appearance, PERRL, EOMI. Absent: scleral icterus, conjunctival injection, periorbital swelling ENT exam: Present: normal exam, mucous membranes moist Neck exam: Present: normal inspection. Absent: tenderness, meningismus, lymphadenopathy Respiratory exam: Present: normal lung sounds bilaterally. Absent: respiratory distress, wheezes, rales, rhonchi, stridor Cardiovascular Exam: Present: regular rate, normal rhythm, normal heart sounds. Absent: systolic murmur, diastolic murmur, rubs, gallop, clicks GI/Abdominal exam: Present: soft, normal bowel sounds. Absent: distended, tenderness, guarding, rebound, rigid Extremities exam: Present: normal inspection, full ROM, normal capillary refill. Absent: tenderness, pedal edema, joint swelling, calf tenderness Back exam: Present: normal inspection Neurological exam: Present: alert, oriented X3, CN II-XII intact Psychiatric exam: Present: normal affect, normal mood Skin exam: Present: warm, dry, intact, normal color. Absent: rash Course Vital Signs 09/20/20 09/20/20 20:49 23:10 Temperature 98.0 F Pulse Rate 86 67 Respiratory 20 20 Rate Blood Pressure 145/80 129/65 O2 Sat by Pulse 99 99 Oximetry - Reevaluation(s) Reevaluation #1: 09/20/20 23:15 Medical records reviewed Reevaluation #2: 09/20/20 23:15 Patient's anesthesiologist, pain management doctor did call ahead describing procedure was on concern for his significant complications Reevaluation #3: 09/21/20 00:07 At this time on recheck patient symptoms are significantly improved patient feels better and prefers discharge Reevaluation #4: 09/21/20 00:08 Patient informed of results and questions have been answered Medical Decision Making - Medical Decision Making 69 female with complex regional pain syndrome coming in for evaluation today. Patient received injections earlier in the day for symptoms began to experience some headaches with other complaints is the day wore on. Patient currently improved here in the urine has no complaints - Lab Data Result diagrams: 09/20/20 22:08 09/20/20 22:08 Lab Results 09/20/20 09/20/20 09/20/20 Range/Units 22:08 22:08 22:08 WBC 7.3 (3.8-10.6) k/uL RBC 4.29 (3.80-5.40) m/uL Hgb 13.8 (11.4-16.0) gm/dL Hct 40.3 (34.0-46.0) % MCV 93.9 (80.0-100.0) fL MCH 32.2 (25.0-35.0) pg MCHC 34.3 (31.0-37.0) g/dL RDW 11.9 (11.5-15.5) % Plt Count 372 (150-450) k/uL MPV 9.0 Neutrophils % 84 % Lymphocytes % 12 % Monocytes % 3 % Eosinophils % 1 % Basophils % 0 % Neutrophils # 6.1 (1.3-7.7) k/uL Lymphocytes # 0.9 L (1.0-4.8) k/uL Monocytes # 0.2 (0-1.0) k/uL Eosinophils # 0.1 (0-0.7) k/uL Basophils # 0.0 (0-0.2) k/uL Sodium 137 (137-145) mmol/L Potassium 3.6 (3.5-5.1) mmol/L Chloride 104 (98-107) mmol/L Carbon Dioxide 26 (22-30) mmol/L Anion Gap 7 mmol/L BUN 12 (7-17) mg/dL Creatinine 0.38 L (0.52-1.04) mg/dL Est GFR (CKD-EPI)AfAm >90 (>60 ml/min/1.73 sqM) Est GFR (CKD-EPI)NonAf >90 (>60 ml/min/1.73 sqM) Glucose 134 H (74-99) mg/dL Calcium 9.9 (8.4-10.2) mg/dL Phosphorus 2.9 (2.5-4.5) mg/dL Magnesium 2.4 H (1.6-2.3) mg/dL Total Bilirubin 0.2 (0.2-1.3) mg/dL AST 22 (14-36) U/L ALT 19 (4-34) U/L Alkaline Phosphatase 72 (38-126) U/L Creatine Kinase 34 (30-135) U/L Troponin I <0.012 (0.000-0.034) ng/mL Total Protein 7.2 (6.3-8.2) g/dL Albumin 4.6 (3.5-5.0) g/dL - EKG Data -: EKG Interpreted by Me (EKG does show sinus rhythm 73 [place] 150 QRS 94 QTC 449) - Radiology Data Radiology results: report reviewed (CT brain C-spine negative for acute disease), image reviewed Disposition Clinical Impression: Headache, Weakness, Medication reaction Disposition: HOME SELF-CARE Condition: Good Instructions (If sedation given, give patient instructions): Acute Headache (ED) Is patient prescribed a controlled substance at d/c from ED?: No Referrals: Eder Hough MD [Primary Care Provider] - 1-2 days
[2020-09-21 00:27] VITALS: BP 117/65; PULSE 60; RESP 18
== END 2020-09-21 00:26 | disposition home or self-care (01) ==
LOC: EC 20:44
DX: R51.9 Headache, unspecified (principal); R53.1 Weakness; E78.5 Hyperlipidemia, unspecified; M19.90 Unspecified osteoarthritis, unspecified site; Z76.0 Encounter for issue of repeat prescription; Z87.891 Personal history of nicotine dependence
CPT/HCPCS: 36415; 93005; 80053; 82550; 83735; 84100; 84484; 85025; 72125; 70450; 99285; 96374; 96375 ×3; 96361; J2060; J2270; J2405; J1885

== ENCOUNTER 2020-11-01 06:19 | Day surgery (SDC) | payer BC, MEDICARE ==
[2020-10-27 15:18] VITALS: BMI 20.8
[2020-11-01 07:00] VITALS: RESP 16; TEMP 98.6
[2020-11-01] MEDS ORDERED: LIDOCAINE 1% (10MG/ML) FOR IV START INTRADERMA ONE (07:04)
[2020-11-01] MEDS ORDERED: MIDAZOLAM 2 MG/2 ML VIAL ONE (07:25)
[2020-11-01] MEDS ORDERED: ROPIVACAINE 5MG/ML 20ML VIAL ONE (07:25)
[2020-11-01] MEDS ORDERED: methylPREDNISolone ACETATE 40 MG/ML 1 ML VIAL ONE (07:25)
[2020-11-01] MEDS ORDERED: fentaNYL (PF) 50 MCG/ML 2 ML AMP ONE (07:25)
--- NOTE | 2020-11-01 07:45 | P.PCN ---
Date of Procedure: 11/01/20 Procedure(s) Performed: PROCEDURES: Right Stellate ganglion block under ultrasopund guidance. PREOPERATIVE DIAGNOSIS: Complex regional pain syndrome type I Right upper extremity POSTOPERATIVE DIAGNOSIS: Same as the preop diagnosis ANESTHESIA: Moderate sedation with intravenous Versed 2 mg and Fentanyl 100 Mcg EBL: None. COMPLICATIONS: None. INDICATION: The patient presents with H&N cancer and symptoms suggestive of CRPS of the right arm here for diagnostic and therapeutic block PROCEDURE DESCRIPTION: The patient with a clinical picture consistent with complex regional pain syndrome of the right upper extremity The patient was greeted in the preprocedure holding area. After verification of the availability of a putaway driver and nothing by mouth status, the risks benefits and alternatives to the procedure were reviewed with the patient. Verbal informed consent was obtianed as well as a written informed consent placed in the chart. Prior to the procedure time out was done verify correct patient, procedure, site, positioning. An IV line was placed preoperatively and normal saline was attached to the patient. The patient was laid supine on the stretcher. Routine monitors were applied including EKG leads, blood pressure cuff, and pulse oximetry. Ultrasound was used to identify the trachea, thyroid gland, jugular vein, carotid artery and anterior tubercle of C6 on the right side. The longus coli muscle and fascia were also clearly visible. The skin over this site was prepped and draped in the usual sterile fashion. The overlying skin and subcutaneous tissue was anesthetized with 2 mL of 1% lidocaine using a 27- gauge needle. Then a 21-gauge 50 mm Pajunk needle was advanced under ultrasound guidance from the lateral to medial using in plane technique over the anterior tubercle of C6 until the tip was situated in the subfascial plane in the longus coli muscle. Hydrodissection with normal saline was utilized to confirm placement of the needle tip in this location. At this point a total of 10 mL volume of treatment injectate consisting of 9 mL of ropivacaine 0.5% and 80 mg of Depo-Medrol was injected easily. The needle was then flushed with 1 mL of preservative free normal saline. The needle insertion site was dressed appropriately. The patient remained hemodynamically stable, and there were no complications. Patient was taken to the recovery room with her monitored for a brief period of time. Patient tolerated the procedure well and was discharged home in stable condition with post procedure instructions. Followup: repeat in 2-3 weeks ,in the future would consider doing pulsed RFA of the right stellate ganglion block ,if it is approved by her insurance
[2020-11-01] MEDS ORDERED: IV FLUID CONTINUATION 700 ML IV ONE (07:50)
[2020-11-01 08:06] VITALS: BP 114/66; PULSE 66
== END 2020-11-01 08:20 | disposition home or self-care (01) ==
LOC: ORPAIN 06:19
PROVIDERS: ATTEND Specialist
DX: G90.511 Complex regional pain syndrome I of right upper limb (principal)
CPT/HCPCS: 64510; J2250; J1030; J3010; J2795; 99152

== ENCOUNTER → 2020-11-28 | Outpatient (CLI) | payer BC ==
[2020-11-28 14:12] VITALS: BP 124/70; PULSE 70; RESP 16; TEMP 97.8
--- NOTE | 2020-11-28 14:31 | P.PN ---
Subjective Progress Note Date: 11/28/20 This is 69-year-old female, She has a diagnosis of complex regional pain syndrome of the right upper extremity. Previously we have done stellate ganglion blocks. x4 she gets excellent pain relief after each block , she had 0 pain after the block for more than 2 weeks . She is having allodynia, hypera lgesia, blanching of her skin in her right forearm down to her right hand. This you have done stellate ganglion blocks several times and after each block she had excellent pain relief for 2-3 weeks after each block, she tried the different kind of pain medication, and she had side effects from it and she tried Lyrica and Neurontin and she had side effects from it - Past Family History Mother Family Medical History: No Reported History - Constitutional General appearance: average body habitus, cooperative, thin - EENT Eyes: PERRLA, fundus normal ENT: hearing grossly normal, normal oropharynx - Neck Neck: normal ROM - Cardiovascular Rhythm: regular - Musculoskeletal ROM preserved bilateral upper extremities. Strenght equal and symmetrical. Positive allodynia ,and dysesthesia right upper extremity - Psychiatric Psychiatric: A&O x's 3, appropriate affect, intact judgment & insight hyperalgesia, and hyperpigmentation along lateral aspect of right hand. Diminshed hair growth, glossy skin appearance. Assessment and Plan Assessment: 1. Complex regional pain syndrome plan is to proceed with pulse radiofrequency stellate ganglion blocks on the right. Patient aware of the risks and benefits of the procedure. we discussed in detail. The pulse radiofrequency is not approved by her insurance and then we could proceed with repeat stellate ganglion block on the right side, also patient could benefit from Lidoderm patch 5% to be applied to the right upper extremity 12 hours on 12 hours off Objective - Vital Signs Vital signs: Vital Signs Temp 97.8 F 11/28/20 14:11 Pulse 70 11/28/20 14:11 Resp 16 11/28/20 14:11 BP 124/70 11/28/20 14:11 Pulse Ox 98 11/28/20 14:11 Intake & Output 11/27/20 11/28/20 11/28/20 18:59 06:59 18:59 Weight 50.349 kg
== END ==
LOC: PNWHC3 13:31
PROVIDERS: ATTEND Specialist
DX: G90.511 Complex regional pain syndrome I of right upper limb (principal); Z88.0 Allergy status to penicillin; Z88.5 Allergy status to narcotic agent
CPT/HCPCS: 99211

== ENCOUNTER 2021-01-05 06:15 | Day surgery (SDC) | payer BC ==
[2021-01-03 13:25] VITALS: BMI 20.5
[2021-01-05 06:58] VITALS: TEMP 87.3
[2021-01-05] MEDS ORDERED: ROPIVACAINE 5MG/ML 20ML VIAL ONE (07:12)
[2021-01-05] MEDS ORDERED: LIDOCAINE 1% INJ 10MG/ML (20 ML MDV) ONE (07:12)
[2021-01-05] MEDS ORDERED: MIDAZOLAM 2 MG/2 ML VIAL ONE (07:12)
[2021-01-05] MEDS ORDERED: IV FLUID CONTINUATION 1,000 ML IV ONE (07:44)
[2021-01-05 07:51] VITALS: RESP 16
[2021-01-05 08:02] VITALS: BP 134/79; PULSE 72
--- NOTE | 2021-01-05 09:09 | P.PCN ---
Date of Procedure: 01/05/21 Preoperative Diagnosis: Complex regional pain syndrome type I in the right arm Postoperative Diagnosis: Same as above Procedure(s) Performed: Stellate ganglion block under ultrasound guidance on the right side Surgeon: Danisha Turner Pathology: none sent Condition: stable Disposition: PACU Description of Procedure: The patient was seen in the preop holding area consent was obtained then she was brought into the procedure room and placed in the supine position with one pillow beneath the upper chest area to hyperextend the cervical spine. The ultrasound machine was used to identify the following landmarks: the [place] protuberance, the longus coli muscle on the right side, the carotid artery, the vertebral artery. The target point was anterior to the right longus coli muscle and posterior to the carotid artery on the right side. I used 25- gauge 1-1/2 inch needle to go through the skin after I numbed the skin with 1% lidocaine and through the anterior scalene muscle. The tip of the needle ended up anterior to the longus coli muscle on the right side and posterior to the right carotid artery. 1 mL of the block solution was injected with no side effects I then injected a total of 5 MLS of bupivacaine 0.75% under ultrasound guidance with good spread in front of the longus coli muscle and posterior to the carotid artery using Doppler ultrasound to avoid any vascular structures. Patient tolerated procedure well and she felt her right arm warmer than the left as she states after the procedure.
== END 2021-01-05 08:17 | disposition home or self-care (01) ==
LOC: ORPAIN 06:15
PROVIDERS: ATTEND Anesthesiology
DX: G90.511 Complex regional pain syndrome I of right upper limb (principal)
CPT/HCPCS: 64510; J2250; J2001 ×2; J2795; 99152

== ENCOUNTER → 2021-01-30 | Outpatient (CLI) | payer BC ==
[2021-01-30 13:09] VITALS: BP 115/68; PULSE 72; RESP 18; TEMP 97.6
--- NOTE | 2021-01-30 13:21 | P.PN ---
Subjective Progress Note Date: 01/30/21 This is 69-year-old female, She has a diagnosis of complex regional pain syndrome of the right upper extremity. Previously we have done stellate ganglion blocks. x4 she gets excellent pain relief after each block , she had 0 pain after the block for more than 2 weeks .currentely She is having allodyn ia, hyperalgesia, blanching of her skin in her right forearm down to her right hand. we have done stellate ganglion blocks several times, and after each block she had excellent pain relief for 2-3 weeks after each block, she tried the different kind of pain medication, and she had side effects from it and she tried Lyrica and Neurontin and she had side effects from it, we requested do pulsed radiofrequency of the stellate ganglion on that the procedure was and approved by her insurance - Past Family History Mother Family Medical History: No Reported History - Constitutional General appearance: average body habitus, cooperative, thin - EENT Eyes: PERRLA, fundus normal ENT: hearing grossly normal, normal oropharynx - Neck Neck: normal ROM - Cardiovascular Rhythm: regular - Musculoskeletal ROM preserved bilateral upper extremities. Strenght equal and symmetrical. Positive allodynia ,and dysesthesia right upper extremity - Psychiatric Psychiatric: A&O x's 3, appropriate affect, intact judgment & insight hyperalgesia, and hyperpigmentation along lateral aspect of right hand. Dimi nshed hair growth, glossy skin appearance. Assessment and Plan Assessment: 1. Complex regional pain syndrome plan is to proceed with Right stellate ganglion blocks x2 2weeks apart. We will use high concentration of the pelvic in 0.75% Patient aware of the risks and benefits of the procedure. we discussed in detail. - PQRS measures = - Patient's medications are documented in the chart. -Tobacco use is positive/negative and counseling.Given. -Patient's has not received pneumococcal vaccine. -Advanced care planning discussed, patient not eligible. -Opiate contract not signed. -Pain positive and follow-up visit/procedure is scheduled. -Patient's blood pressure measured [ 115/68 ] , and documented in the record ,and patient will follow up with the primary care. -Patient's weight was measured and body mass index [ ] within the normal limits and counseling was done. and patient instructed to follow-up with the primary care physician. -Patient was not identified as an unhealthy alcohol user Objective - Vital Signs Vital signs: Vital Signs Temp 97.6 F 01/30/21 13:01 Pulse 72 01/30/21 13:01 Resp 18 01/30/21 13:01 BP 115/68 01/30/21 13:01 Pulse Ox 97 01/30/21 13:01 Intake & Output 01/29/21 01/30/21 01/30/21 18:59 06:59 18:59 Weight 50.802 kg
== END ==
LOC: PNWHC3 12:45
PROVIDERS: ATTEND Specialist
DX: G90.511 Complex regional pain syndrome I of right upper limb (principal); Z88.5 Allergy status to narcotic agent; Z88.0 Allergy status to penicillin
CPT/HCPCS: 99212

== ENCOUNTER 2021-03-28 06:22 | Day surgery (SDC) | payer BC ==
[2021-03-22 15:57] VITALS: BMI 21.0
[2021-03-28 06:40] VITALS: TEMP 98.2
[2021-03-28] MEDS ORDERED: LACTATED RINGERS 1,000 ML IV ONE (06:40)
[2021-03-28] MEDS ORDERED: MIDAZOLAM 2 MG/2 ML VIAL ONE (07:21)
[2021-03-28] MEDS ORDERED: BUPIVACAINE (PF) 0.75% 10 ML VIAL ONE (07:21)
[2021-03-28] MEDS ORDERED: ROPIVACAINE 5MG/ML 20ML VIAL ONE (07:21)
[2021-03-28] MEDS ORDERED: DEXAMETHASONE SOD PHOSPHATE 10 MG/ML 1 ML VIAL ONE (07:21)
[2021-03-28] MEDS ORDERED: methylPREDNISolone ACETATE 40 MG/ML 1 ML VIAL ONE (07:21)
[2021-03-28] MEDS ORDERED: fentaNYL (PF) 50 MCG/ML 2 ML AMP ONE (07:21)
--- NOTE | 2021-03-28 07:44 | P.PCN ---
Date of Procedure: 03/28/21 Procedure(s) Performed: PROCEDURES: Right Stellate ganglion block under ultrasopund guidance. PREOPERATIVE DIAGNOSIS: Complex regional pain syndrome type I Right upper extremity POSTOPERATIVE DIAGNOSIS: Same as the preop diagnosis ANESTHESIA: Moderate sedation with intravenous Versed 2 mg and Fentanyl 100 Mcg EBL: None. COMPLICATIONS: None. INDICATION: The patient presents with H&N cancer and symptoms suggestive of CRPS of the right arm here for diagnostic and therapeutic block PROCEDURE DESCRIPTION: The patient was greeted in the preprocedure holding area. After verification of the availability of a bus van driver and nothing by mouth status, the risks benefits and alternatives to the procedure were reviewed with the patient. Verbal informed consent was obtianed as well as a written informed consent The patient with a clinical picture consistent with complex regional pain syndrome of the right upper extremityced in the chart. Prior to the procedure time out was done verify correct patient, procedure, site, positioning. An IV line was placed preoperatively and normal saline was attached to the patient. The patient was laid supine on the stretcher. Routine monitors were applied including EKG leads, blood pressure cuff, and pulse oximetry. Ultrasound was used to identify the trachea, thyroid gland, jugular vein, carotid artery and anterior tubercle of C6 on the right side. The longus coli muscle and fascia were also clearly visible. The skin over this site was prepped and draped in the usual sterile fashion. The overlying skin and subcutaneous tissue was anesthetized with 2 mL of 1% lidocaine using a 27- gauge needle. Then a 21-gauge 50 mm Pajunk needle was advanced under ultrasound guidance from the lateral to medial using in plane technique over the anterior tubercle of C6 until the tip was situated in the subfascial plane in the longus coli muscle. Hydrodissection with normal saline was utilized to confirm placement of the needle tip in this location. then of 9 mL of ropivacaine 0.75% ,and 40 mg of Depo-Medrol was injected easily. The needle was then flushed with 1 mL of preservative free normal saline. The needle insertion site was dressed appropriately. The patient remained hemodynamically stable, and there were no complications. Patient was taken to the recovery room with her monitored for a brief period of time. Patient tolerated the procedure well and was discharged home in stable condition with post procedure instructions. Followup: repeat in 2-3 weeks ,in the future would consider doing pulsed RFA of the right stellate ganglion block ,if it is approved by her insurance
[2021-03-28] MEDS ORDERED: IV FLUID CONTINUATION 700 ML IV ONE (07:50)
[2021-03-28 07:52] VITALS: RESP 16
[2021-03-28 08:12] VITALS: BP 120/74; PULSE 69
== END 2021-03-28 08:27 | disposition home or self-care (01) ==
LOC: ORPAIN 06:22
PROVIDERS: ATTEND Specialist
DX: G90.511 Complex regional pain syndrome I of right upper limb (principal)
CPT/HCPCS: 64510; J2250; J1100; J3010; 99152

== ENCOUNTER 2021-04-11 06:24 | Day surgery (SDC) | payer BC ==
[2021-04-07 15:17] VITALS: BMI 21.0
[2021-04-11 06:54] VITALS: TEMP 97.4
[2021-04-11] MEDS ORDERED: fentaNYL (PF) 50 MCG/ML 2 ML AMP ONE (07:16)
[2021-04-11] MEDS ORDERED: methylPREDNISolone ACETATE 40 MG/ML 1 ML VIAL ONE (07:16)
[2021-04-11] MEDS ORDERED: MIDAZOLAM 2 MG/2 ML VIAL ONE (07:16)
[2021-04-11] MEDS ORDERED: BUPIVACAINE (PF) 0.75% 30 ML VIAL ONE (07:16)
--- NOTE | 2021-04-11 07:36 | P.PCN ---
Date of Procedure: 04/11/21 Procedure(s) Performed: PROCEDURES: Right Stellate ganglion block under ultrasopund guidance. PREOPERATIVE DIAGNOSIS: Complex regional pain syndrome type I Right upper extremity POSTOPERATIVE DIAGNOSIS: Same as the preop diagnosis ANESTHESIA: Moderate sedation with intravenous Versed 2 mg and Fentanyl 100 Mcg EBL: None. COMPLICATIONS: None. INDICATION: The patient presents with H&N cancer and symptoms suggestive of CRPS of the right arm here for diagnostic and therapeutic block PROCEDURE DESCRIPTION: The patient was greeted in the preprocedure holding area. After verification of the availability of a local company hazmat driver and nothing by mouth status, the risks benefits and alternatives to the procedure were reviewed with the patient. Verbal informed consent was obtianed as well as a written informed consent The patient with a clinical picture consistent with complex regional pain syndrome of the right upper extremityced in the chart. Prior to the procedure time out was done verify correct patient, procedure, site, positioning. An IV line was placed preoperatively and normal saline was attached to the patient. The patient was laid supine on the stretcher. Routine monitors were applied including EKG leads, blood pressure cuff, and pulse oximetry. Ultrasound was used to identify the trachea, thyroid gland, jugular vein, carotid artery and anterior tubercle of C6 on the right side. The longus coli muscle and fascia were also clearly visible. The skin over this site was prepped and draped in the usual sterile fashion. The overlying skin and subcutaneous tissue was anesthetized with 2 mL of 1% lidocaine using a 27- gauge needle. Then a 21-gauge 50 mm Pajunk needle was advanced under ultrasound guidance from the lateral to medial using in plane technique over the anterior tubercle of C6 until the tip was situated in the subfascial plane in the longus coli muscle. Hydrodissection with normal saline was utilized to confirm placement of the needle tip in this location. then of 14 mL of ropivacaine 0.75% ,and 80 mg of Depo-Medrol was injected easily. The needle was then flushed with 1 mL of preservative free normal saline. The needle insertion site was dressed appropriately. The patient remained hemodynamically stable, and there were no complications. Patient was taken to the recovery room with her monitored for a brief period of time. Patient tolerated the procedure well and was discharged home in stable condition with post procedure instructions. Followup: repeat in 2-3 weeks ,in the future would consider doing pulsed RFA of the right stellate ganglion block ,if it is approved by her insurance
[2021-04-11] MEDS ORDERED: IV FLUID CONTINUATION 500 ML IV ONE (07:49)
[2021-04-11] MEDS ORDERED: LACTATED RINGERS 1,000 ML IV ONE (07:49)
[2021-04-11 07:53] VITALS: BP 125/75; PULSE 69; RESP 16
== END 2021-04-11 08:18 | disposition home or self-care (01) ==
LOC: ORPAIN 06:24
PROVIDERS: ATTEND Specialist
DX: G90.511 Complex regional pain syndrome I of right upper limb (principal); Z88.5 Allergy status to narcotic agent; Z88.0 Allergy status to penicillin
CPT/HCPCS: 64510; J2250; J1030; J3010; 99152

== ENCOUNTER → 2021-05-04 | Outpatient (CLI) | payer BC ==
[2021-05-04 14:18] VITALS: BP 116/78; PULSE 72; RESP 18; TEMP 97.8
--- NOTE | 2021-05-04 14:21 | P.PN ---
Subjective Progress Note Date: 05/04/21 Principal diagnosis: A 70 yr old female with a history of severe and chronic neck pain secondary to cervical degenerative disc diseases and facet arthropathy presents today for evaluation of right stellate ganglion block #2. Patient states she expressively 5% relief status post procedure. Pain level is currently 6 out of 10 in intensity in the right upper extremity of a aching, throbbing, stabbing sensation. No radiation. Pain is provoked by lifting, cold weather and a pplication of ice. Pain is alleviated with medications, topical Lidoderm patch, injections, physical therapy on and off for the last 20 years, home exercise regimen, repositioning and rest. Interventional pain procedures completed include multiple right stellate ganglion block over the last 15 months Patient is currently on Tylenol OTC Patient denies any side effects of the medication(s), denies excessive drowsiness or sleepiness, denies suicidal ideation and reports that the current pain medication is helping to control the pain and improve activities of daily living. Patient denies any motor or sensory deficits. Patient denies any fever or night sweats, denies any change in the bowel movements or urination. Physical Examination: -Constitutional: Cooperative. Not in acute distress . -HEENT: Neck is supple. No lymphadenopathy. No thyromegaly. Normal thyroid size. Eyes: No ptosis , no icterus, no photophobia. R Conjunctivitis. Facial symmetry intact. ENT: No auditory deficits. Normal oropharynx. No Thrush. - Respiratory: Chest clear to auscultations bilaterally. No wheezing. No rhonchi. - Cardiovascular: Regular rate and rhythm. S1 / S2 , no S3 , no S4. - Gastrointestinal: Abdomen soft no tenderness. Bowel sounds positive in all four quadrants. No organomegaly. - Genitourinary: Deferred. - Neurologic: Cranial nerve II to XII intact. No focal neurological deficits. - Psychatric: Alert & oriented x 3. Matching mood & appropriate affect. Judgment and insight intact. - Lymphatic: No Lymphadenopathy. - Musculoskeletal: Cervical spine: Muscle bulk/ tone/ strength in the bilateral upper extremities normal. Facet loading test cervical area positive. Lumbar spine: Motor bulk/ tone/ strength lower extremities , thigh and legs : 5/5 Deep tendon reflexes : Normal Knee Jerk. Normal Ankle Jerk . Vertebral body tenderness to palpation over Lumbar Facet Loading Test positive Straight Leg Raise: positive at 30 degrees right side/ left side Gaenslen's Test positive Sacral spine : Severe tenderness over the Sacroiliac joint: right side / left side Range of motion: Flexion of the lumbar spine <60 degrees Range of motion: Extension of the lumbar spine <20 degrees Gaenslen's Test positive Henrique test: positive right side / left side Assessment and plan: Chronic neck pain secondary to cervical degenerative disc disease and facet arthropathy Recommendation of right stellate ganglion block #3. This generally would be the third and last procedure within a 6 month timeframe, unless extenuating circumstances arise where patient would benefit from additional injections within that timeframe. Risks, benefits of procedure discussed and patient verbalized understanding. Denies anticoagulants use. Denies medical history of diabetes mellitus. All patient questions answered MAPS reviewed and it was appropriate. I have spent 31 minutes on patient care today. Dr Christine was available by phone for the evaluation of this patient. The time was used to review the medical records including relevant urine studies and Prescription history (MAPs), review of the available imaging, evaluation and examination of the patient, coordination of care with the medical staff and if applicable referring physicians, as well as creation of the medical record PQRS Measure Charge Sheet Mode of Arrival: Ambulatory PQRS Narrative: Blood Pressure 116/78 Pain Intensity [Arm] 6 Scale Used Numeric (1 - 10) Hx Alcohol Use (MH) Yes: Daily Home Medications: Ambulatory Orders Aspirin [Adult Low Dose Aspirin EC] 81 mg PO DAILY 03/18/20 Atorvastatin Calcium [Lipitor] 20 mg PO DAILY 03/18/20 Calcium Carbonate/Vitamin D3 [Calcium 600-Vit D3 100 mcg (400 Iu)] 2 tab PO DAILY 03/18/20 Multivitamins, Thera [Multivitamin (formulary)] 1 tab PO DAILY 03/18/20 Acetaminophen/Diphenhydramine [Tylenol PM 500-25mg] 2 tab PO HS 04/01/20 Ascorbic Acid/Multivit-Min [Emergen-C 1,000 mg Packet] 1 packet PO DAILY 04/01/20 Lidocaine 5% Patch [Lidoderm] 1 patch TOPICAL DAILY PRN 01/03/21 Naproxen Sodium [Aleve] 220 mg PO DAILY PRN 01/03/21
== END ==
LOC: PNWHC3 13:26
PROVIDERS: ATTEND Physician Assistant Medical
DX: G89.29 Other chronic pain (principal); M50.30 Other cervical disc degeneration, unspecified cervical region; Z88.0 Allergy status to penicillin; Z88.5 Allergy status to narcotic agent
CPT/HCPCS: 99211

== ENCOUNTER → 2021-06-28 | Outpatient (CLI) | payer BC ==
[2021-06-28 12:50] VITALS: BP 128/80; PULSE 66; RESP 18; TEMP 97.6
--- NOTE | 2021-06-28 13:11 | P.PN ---
Subjective Progress Note Date: 06/28/21 Principal diagnosis: A 70 yr old female with a history of severe and chronic upper back pain presents today for evaluation s/p R stellate ganglion injection. Patient admits she obtain 90% pain relief status post procedure. Pain level is currently at 1 out of 10 in intensity, sharp, shooting to the RUE and only exacerbated with lifting. Pain is alleviated with medications, topical lidocaine patch, injections, repositioning, stretching and rest. Interventional pain procedures completed include MULTIPLE R stellate ganglion injections Patient is currently on Ibuprofen OTC Patient denies any side effects of the medication(s), denies excessive drowsiness or sleepiness, denies suicidal ideation and reports that the current pain medication is helping to control the pain and improve activities of daily living. Patient denies any motor or sensory deficits. Patient denies any fever or night sweats, denies any change in the bowel movements or urination. Physical Examination: -Constitutional: Cooperative. Not in acute distress . -HEENT: Neck is supple. No lymphadenopathy. No thyromegaly. Normal thyroid size. Eyes: No ptosis , no icterus, no photophobia. ENT: No auditory deficits. Normal oropharynx. No Thrush. - Respiratory: Chest clear to auscultations bilaterally. No wheezing. No rhonchi. - Cardiovascular: Regular rate and rhythm. S1 / S2 , no S3 , no S4. - Gastrointestinal: Abdomen soft no tenderness. Bowel sounds positive in all four quadrants. No organomegaly. - Genitourinary: Deferred. - Neurologic: Cranial nerve II to XII intact. No focal neurological deficits. - Psychatric: Alert & oriented x 3. Matching mood & appropriate affect. Judgment and insight intact. - Lymphatic: No Lymphadenopathy. - Musculoskeletal: Cervical spine: Muscle bulk/ tone/ strength in the bilateral upper extremities normal. Facet loading test cervical area positive. Lumbar spine: Motor bulk/ tone/ strength lower extremities , thigh and legs : 5/5 Deep tendon reflexes : Normal Knee Jerk. Normal Ankle Jerk . 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 She will manage the rest of her pain with pain relieving home modalities. She may return to our clinic on an as needed basis. All patient questions answered MAPS reviewed and it was appropriate. I have spent 31 minutes on patient care today. Dr Christine was available by phone for the evaluation of this patient. The time was used to review the medical records including relevant urine studies and Prescription history (MAPs), review of the available imaging, evaluation and examination of the patient, coordination of care with the medical staff and if applicable referring physicians, as well as creation of the medical record Objective - Vital Signs Vital signs: Vital Signs Temp 97.6 F 06/28/21 12:40 Pulse 66 06/28/21 12:40 Resp 18 06/28/21 12:40 BP 128/80 06/28/21 12:40 Pulse Ox 98 06/28/21 12:40 Intake & Output 06/27/21 06/28/21 06/28/21 18:59 06:59 18:59 Weight 52.617 kg PQRS Measure Charge Sheet Mode of Arrival: Ambulatory - Pain Location Right Arm Pharmacological Interventions: Block, PRN Medication, Topical Medication PQRS Narrative: Blood Pressure 128/80 Pain Intensity [Right Arm] 1 Scale Used Numeric (1 - 10) Hx Alcohol Use (MH) Yes: Daily Home Medications: Ambulatory Orders Aspirin [Adult Low Dose Aspirin EC] 81 mg PO DAILY 03/18/20 Atorvastatin Calcium [Lipitor] 20 mg PO DAILY 03/18/20 Calcium Carbonate/Vitamin D3 [Calcium 600-Vit D3 100 mcg (400 Iu)] 2 tab PO DAILY 03/18/20 Multivitamins, Thera [Multivitamin (formulary)] 1 tab PO DAILY 03/18/20 Acetaminophen/Diphenhydramine [Tylenol PM 500-25mg] 2 tab PO HS PRN 04/01/20 Ascorbic Acid/Multivit-Min [Emergen-C 1,000 mg Packet] 1 packet PO DAILY 04/01/20 Lidocaine 5% Patch [Lidoderm] 1 patch TOPICAL DAILY PRN 01/03/21
== END ==
LOC: PNWHC3 12:25
PROVIDERS: ATTEND Specialist
DX: I78.1 Nevus, non-neoplastic (principal); G89.29 Other chronic pain; Z88.0 Allergy status to penicillin; Z88.5 Allergy status to narcotic agent
CPT/HCPCS: 99211

== ENCOUNTER → 2023-05-13 | Outpatient (CLI) | payer BC ==
[2023-05-13 09:25] VITALS: BP 139/99; PULSE 79; RESP 15; TEMP 98.6
--- NOTE | 2023-05-13 14:21 | P.PAINPG ---
PQRS Measure Charge Sheet Comment: A 72 yr old female with a history of severe and chronic neck/face/RUE pain secondary to DDD, spondylosis and facet arthropathy without myelopathy presents today for evaluation. Pain level is currently at 8/ 10 in intensity, predominantly axial, sharp in character w occasional shooting pain towards the RUE. Pain is provoked w lifting. Pain is alleviated with injections in the past, medications, topical lidocaine patch, repositioning, stretching and rest. Cervical disability score of 31. Interventional pain procedures completed include MULTIPLE R stellate ganglion injections Patient is currently on Ibu, Aleve, Lidoderm Patient denies any side effects of the medication(s), denies excessive drowsin ess or sleepiness, denies suicidal ideation and reports that the current pain medication is helping to control the pain and improve activities of daily living. Patient denies any motor or sensory deficits. Patient denies any fever or night sweats, denies any change in the bowel movements or urination. Physical Examination: -Constitutional: Cooperative. Not in acute distress . -HEENT: Neck is supple. No lymphadenopathy. No thyromegaly. Normal thyroid size. Eyes: No ptosis , no icterus, no photophobia. ENT: No auditory deficits. Normal oropharynx. No Thrush. - Respiratory: Chest clear to auscultations bilaterally. No wheezing. No rhonchi. - Cardiovascular: Regular rate and rhythm. S1 / S2 , no S3 , no S4. - Gastrointestinal: Abdomen soft no tenderness. Bowel sounds positive in all four quadrants. No organomegaly. - Genitourinary: Deferred. - Neurologic: Cranial nerve II to XII intact. No focal neurological deficits. - Psychatric: Alert & oriented x 3. Matching mood & appropriate affect. Judgment and insight intact. - Lymphatic: No Lymphadenopathy. - Musculoskeletal: Cervical spine: Vertebral body TTP over Muscle bulk/ tone/ strength in the bilateral upper extremities normal Facet loading test cervical area positive. Lumbar spine: Motor bulk/ tone/ strength lower extremities , thigh and legs : 5/5 Deep tendon reflexes : Normal Knee Jerk. Normal Ankle Jerk . 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 A series of injections for optimal pain relief. Risks, benefits of procedure discussed and patient verbalized understanding. Protocol for discontinuation/continuation of medications surrounding procedure discussed. All patient questions answered MAPS reviewed and it was appropriate. I have spent 31 minutes on patient care today. Dr Christine was available by phone for the evaluation of this patient. The time was used to review the medical records including relevant urine studies and Prescription history (MAPs), review of the available imaging, evaluation and examination of the patient, coordination of care with the medical staff and if applicable referring physicians, as well as creation of the medical record PQRS Narrative: Hx Alcohol Use (MH) Yes: Daily Home Medications: Ambulatory Orders Aspirin [Adult Low Dose Aspirin EC] 81 mg PO DAILY 03/18/20 Atorvastatin Calcium [Lipitor] 20 mg PO DAILY 03/18/20 Calcium Carbonate/Vitamin D3 [Calcium 600-Vit D3 100 mcg (400 Iu)] 2 tab PO DAILY 03/18/20 Multivitamins, Thera [Multivitamin (formulary)] 1 tab PO DAILY 03/18/20 Acetaminophen/Diphenhydramine [Tylenol PM 500-25mg] 2 tab PO HS PRN 04/01/20 Ascorbic Acid/Multivit-Min [Emergen-C 1,000 mg Packet] 1 packet PO DAILY 04/01/20 Lidocaine 5% Patch [Lidoderm] 1 patch TOPICAL DAILY PRN 01/03/21 diazePAM [Valium] 5 mg PO DAILY PRN 1 Days #2 tab 05/13/23 Controlled Substance Measures - Controlled Substance Measures Is patient prescribed a controlled substance at discharge?: Yes When asked, does pt state using other controlled substances?: No If prescribed controlled substance>3 days was MAPS reviewed?: Prescribed <3 Days
== END ==
LOC: PNWHC3 08:52
PROVIDERS: ATTEND Specialist
DX: G90.511 Complex regional pain syndrome I of right upper limb (principal); M67.48 Ganglion, other site; M54.2 Cervicalgia; Z88.5 Allergy status to narcotic agent; Z88.0 Allergy status to penicillin; Z79.82 Long term (current) use of aspirin
CPT/HCPCS: 99211

== ENCOUNTER 2023-05-30 06:20 | Day surgery (SDC) | payer BC, MEDICARE ==
[2023-05-28 11:14] VITALS: BMI 23.3
[2023-05-30 07:27] VITALS: TEMP 97.5
[2023-05-30] MEDS: LACTATED RINGERS 1,000 ML IV SCH (07:27)
[2023-05-30] MEDS ORDERED: fentaNYL (PF) 50 MCG/ML 2 ML AMP ONE (07:41)
[2023-05-30] MEDS ORDERED: MIDAZOLAM 2 MG/2 ML VIAL ONE (07:41)
[2023-05-30] MEDS ORDERED: DEXAMETHASONE SOD PHOSPHATE 10 MG/ML 1 ML VIAL ONE (07:41)
[2023-05-30] MEDS ORDERED: ROPIVACAINE 5MG/ML 20ML VIAL ONE (07:41)
--- NOTE | 2023-05-30 07:54 | P.PCN ---
Date of Procedure: 05/30/23 Procedure(s) Performed: PROCEDURES: Right Stellate ganglion block under ultrasopund guidance. PREOPERATIVE DIAGNOSIS: Complex regional pain syndrome type I Right upper extremity POSTOPERATIVE DIAGNOSIS: Same as the preop diagnosis ANESTHESIA: Moderate sedation with intravenous Versed 2 mg and Fentanyl 100 Mcg Sedation start time 07:41, ended at 07:50 EBL: None. COMPLICATIONS: None. INDICATION: The patient presents with H&N cancer and symptoms suggestive of CRPS of the right arm here for diagnostic and therapeutic block PROCEDURE DESCRIPTION: The patient was greeted in the preprocedure holding area. After verification of the availability of a class b driver and nothing by mouth status, the risks benefits and alternatives to the procedure were reviewed with the patient. Verbal informed consent was obtianed as well as a written informed consent The patient with a clinical picture consistent with complex regional pain syndrome of the right upper extremityced in the chart. Prior to the procedure time out was done verify correct patient, procedure, site, positioning. An IV line was placed preoperatively and normal saline was attached to the patient. The patient was laid supine on the stretcher. Routine monitors were applied including EKG leads, blood pressure cuff, and pulse oximetry. Ultrasound was used to identify the trachea, thyroid gland, jugular vein, carotid artery and anterior tubercle of C6 on the right side. The longus coli muscle and fascia were also clearly visible. The skin over this site was prepped and draped in the usual sterile fashion. The overlying skin and subcutaneous tissue was anesthetized with 2 mL of 1% lidocaine using a 27- gauge needle. Then a 21-gauge 50 mm Pajunk needle was advanced under ultrasound guidance from the lateral to medial using in plane technique over the anterior tubercle of C6 until the tip was situated in the subfascial plane in the longus coli muscle. Hydrodissection with normal saline was utilized to confirm placement of the needle tip in this location. then of 12 mL of ropivacaine 0.5% ,and 20 mg of Dexmethasone was injected easily. The needle was then flushed with 1 mL of preservative free normal saline. The needle insertion site was dressed appropriately. The patient remained hemodynamically stable, and there were no complications. Patient was taken to the recovery room with her monitored for a brief period of time. Patient tolerated the procedure well and was discharged home in stable condition with post procedure instructions. Followup: repeat in 2-3 weeks ,in the future would consider doing pulsed RFA of the right stellate ganglion block ,if it is approved by her insurance
[2023-05-30] MEDS: LACTATED RINGERS 1,000 ML IV ONE (07:58)
[2023-05-30 08:41] VITALS: BP 120/75; PULSE 69; RESP 18
== END 2023-05-30 08:30 | disposition home or self-care (01) ==
LOC: ORPAIN 06:20
PROVIDERS: ATTEND Specialist
DX: G90.511 Complex regional pain syndrome I of right upper limb (principal); Z88.5 Allergy status to narcotic agent; Z88.0 Allergy status to penicillin; Z79.82 Long term (current) use of aspirin
CPT/HCPCS: 64510; 99152; J2250; J1100; J3010; J2795

== ENCOUNTER → 2023-06-17 | Outpatient (CLI) | payer MEDICARE ==
[2023-06-17 13:23] VITALS: BP 132/72; PULSE 79; RESP 16; TEMP 97.7
--- NOTE | 2023-06-17 13:58 | P.PAINPG ---
PQRS Measure Charge Sheet Comment: A 72 yr old female with a history of severe and chronic neck/face/RUE pain secondary to DDD, spondylosis and facet arthropathy without myelopathy presents today for evaluation s/p R Stellate Ganglion injection #1. Pt states she experienced 50 % pain relief x 2 wks s/p procedure. Pain level is currently at 7 / 10 in intensity, intermittent, sharp in character w occasional shooting pain towards the RUE. Pain is provoked w lifting. Pain is alleviated with injections in the past, medications, topical lidocaine patch, repositioning, stretching and rest. Cervical disability score of 30. Interventional pain procedures completed include MULTIPLE R stellate ganglion x1 Patient is currently on Ibu, Aleve, Lidoderm Patient denies any side effects of the medication(s), denies excessive drowsiness or sleepiness, denies suicidal ideation and reports that the current pain medication is helping to control the pain and improve activities of daily living. Patient denies any motor or sensory deficits. Patient denies any fever or night sweats, denies any change in the bowel movements or urination. Physical Examination: -Constitutional: Cooperative. Not in acute distress . -HEENT: Neck is supple. No lymphadenopathy. No thyromegaly. Normal thyroid size. Eyes: No ptosis , no icterus, no photophobia. ENT: No auditory deficits. Normal oropharynx. No Thrush. - Respiratory: Chest clear to auscultations bilaterally. No wheezing. No rhonchi. - Cardiovascular: Regular rate and rhythm. S1 / S2 , no S3 , no S4. - Gastrointestinal: Abdomen soft no tenderness. Bowel sounds positive in all four quadrants. No organomegaly. - Genitourinary: Deferred. - Neurologic: Cranial nerve II to XII intact. No focal neurological deficits. - Psychatric: Alert & oriented x 3. Matching mood & appropriate affect. Judgment and insight intact. - Lymphatic: No Lymphadenopathy. - Musculoskeletal: Cervical spine: Vertebral body TTP over Muscle bulk/ tone/ strength in the bilateral upper extremities normal Facet loading test cervical area positive. Lumbar spine: Motor bulk/ tone/ strength lower extremities , thigh and legs : 5/5 Deep tendon reflexes : Normal Knee Jerk. Normal Ankle Jerk . 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 May need a series of injections for optimal pain relief. Risks, benefits of procedure discussed and patient verbalized understanding. Protocol for discontinuation/continuation of medications surrounding procedure discussed. All patient questions answered MAPS reviewed and it was appropriate. I have spent 31 minutes on patient care today. Dr Christine was available by phone for the evaluation of this patient. The time was used to review the medical records including relevant urine studies and Prescription history (MAPs), review of the available imaging, evaluation and examination of the patient, coordination of care with the medical staff and if applicable referring physicians, as well as creation of the medical record PQRS Narrative: Hx Alcohol Use (MH) Yes: Daily Home Medications: Ambulatory Orders Aspirin [Adult Low Dose Aspirin EC] 81 mg PO DAILY 03/18/20 Atorvastatin Calcium [Lipitor] 20 mg PO DAILY 03/18/20 Calcium Carbonate/Vitamin D3 [Calcium 600-Vit D3 100 mcg (400 Iu)] 2 tab PO DAILY 03/18/20 Multivitamins, Thera [Multivitamin (formulary)] 1 tab PO DAILY 03/18/20 Acetaminophen/Diphenhydramine [Tylenol PM 500-25mg] 2 tab PO HS PRN 04/01/20 Cholecalciferol [Vitamin D3 (125 Mcg = 5000 Iu)] 125 mcg PO DAILY 05/28/23 Ferrous Sulfate [Feosol] 325 mg PO Q48H 05/28/23 Controlled Substance Measures - Controlled Substance Measures Is patient prescribed a controlled substance at discharge?: No
== END ==
LOC: PNWHC3 12:26
PROVIDERS: ATTEND Specialist
DX: G89.29 Other chronic pain (principal); M67.48 Ganglion, other site; M54.6 Pain in thoracic spine; Z88.5 Allergy status to narcotic agent; Z88.0 Allergy status to penicillin
CPT/HCPCS: 99211

== ENCOUNTER 2023-06-27 06:10 | Day surgery (SDC) | payer MEDICARE ==
[2023-06-26 11:02] VITALS: BMI 24.3
[2023-06-27] MEDS: LACTATED RINGERS 1,000 ML IV SCH (06:29)
[2023-06-27 07:07] VITALS: TEMP 97.3
[2023-06-27] MEDS ORDERED: DEXAMETHASONE SOD PHOSPHATE 10 MG/ML 1 ML VIAL ONE (07:10)
[2023-06-27] MEDS ORDERED: ROPIVACAINE 5MG/ML 20ML VIAL ONE (07:10)
[2023-06-27] MEDS ORDERED: fentaNYL (PF) 50 MCG/ML 2 ML AMP ONE (07:10)
[2023-06-27] MEDS ORDERED: MIDAZOLAM 2 MG/2 ML VIAL ONE (07:10)
[2023-06-27] MEDS: LACTATED RINGERS 1,000 ML IV ONE (07:28)
--- NOTE | 2023-06-27 07:29 | P.PCN ---
Date of Procedure: 06/27/23 Procedure(s) Performed: PROCEDURES: Right Stellate ganglion block under ultrasopund guidance. PREOPERATIVE DIAGNOSIS: Complex regional pain syndrome type I Right upper extremity POSTOPERATIVE DIAGNOSIS: Same as the preop diagnosis ANESTHESIA: Moderate sedation with intravenous Versed 2 mg and Fentanyl 100 Mcg Sedation start time 07:10, ended at 07:21 EBL: None. COMPLICATIONS: None. INDICATION: The patient presents sighns ,and symptoms suggestive of CRPS of the right arm here for diagnostic and therapeutic block PROCEDURE DESCRIPTION: The patient was greeted in the preprocedure holding area. After verification of the availability of a package car driver and nothing by mouth status, the risks benefits and alternatives to the procedure were reviewed with the patient. Verbal informed consent was obtianed as well as a written informed consent The patient with a clinical picture consistent with complex regional pain syndrome of the right upper extremityced in the chart. Prior to the procedure time out was done verify correct patient, procedure, site, positioning. An IV line was placed preoperatively and normal saline was attached to the patient. The patient was laid supine on the stretcher. Routine monitors were applied including EKG leads, blood pressure cuff, and pulse oximetry. Ultrasound was used to identify the trachea, thyroid gland, jugular vein, carotid artery and anterior tubercle of C6 on the right side. The longus coli muscle and fascia were also clearly visible. The skin over this site was prepped and draped in the usual sterile fashion. The overlying skin and subcutaneous tissue was anesthetized with 2 mL of 0.5 % Ropivacaine using a 27-gauge needle. Then a 21-gauge 100 mm Pajunk needle was advanced under ultrasound guidance from the lateral to medial using in plane technique over the anterior tubercle of C6 until the tip was situated in the subfascial plane in the longus coli muscle. Hydrodissection with normal saline was utilized to confirm placement of the needle tip in this location. then of 10 mL of ropivacaine 0.5% ,and 20 mg of Dexmethasone was injected easily. The needle was then flushed with 1 mL of preservative free normal saline. The needle insertion site was dressed appropriately. The patient remained hemodynamically stable, and there were no complications. Patient was taken to the recovery room with her monitored for a brief period of time. Patient tolerated the procedure well and was discharged home in stable condition with post procedure instructions. Followup: repeat in 2-3 weeks
[2023-06-27 07:53] VITALS: BP 126/74; PULSE 73; RESP 18
== END 2023-06-27 08:03 | disposition home or self-care (01) ==
LOC: ORPAIN 06:10
PROVIDERS: ATTEND Specialist
DX: G90.511 Complex regional pain syndrome I of right upper limb (principal); Z79.82 Long term (current) use of aspirin; Z88.5 Allergy status to narcotic agent; Z88.0 Allergy status to penicillin
CPT/HCPCS: 64510; 99152; J2250; J1100; J3010; J2795

== ENCOUNTER → 2023-07-15 | Outpatient (CLI) | payer MEDICARE ==
[2023-07-15 13:30] VITALS: BP 133/76; PULSE 89; RESP 15; TEMP 98.2
--- NOTE | 2023-07-15 14:57 | P.PAINPG ---
PQRS Measure Charge Sheet Comment: A 72 yr old female with a history of severe and chronic neck/face/RUE pain secondary to DDD, spondylosis and facet arthropathy without myelopathy presents today for evaluation s/p R Stellate Ganglion injection #2. Pt states she experienced 65 % pain relief x 2-3 wks s/p procedure. Pain level is currently at 6 / 10 in intensity, intermittent, sharp in character w occasional shooting pain towards the RUE. Pain is provoked w laying supine in 1 position at bedtime. Pain is alleviated with injections in the past, medications, topical lidocaine patch, repositioning, stretching and rest. Cervical disability score of 29. Interventional pain procedures completed include MULTIPLE R stellate ganglion x2 (2023) Patient is currently on Ibu, Aleve, Lidoderm Patient denies any side effects of the medication(s), denies excessive drowsiness or sleepiness, denies suicidal ideation and reports that the current pain medication is helping to control the pain and improve activities of daily living. Patient denies any motor or sensory deficits. Patient denies any fever or night sweats, denies any change in the bowel movements or urination. Physical Examination: -Constitutional: Cooperative. Not in acute distress . -HEENT: Neck is supple. No lymphadenopathy. No thyromegaly. Normal thyroid size. Eyes: No ptosis , no icterus, no photophobia. ENT: No auditory deficits. Normal oropharynx. No Thrush. - Respiratory: Chest clear to auscultations bilaterally. No wheezing. No rhonchi. - Cardiovascular: Regular rate and rhythm. S1 / S2 , no S3 , no S4. - Gastrointestinal: Abdomen soft no tenderness. Bowel sounds positive in all four quadrants. No organomegaly. - Genitourinary: Deferred. - Neurologic: Cranial nerve II to XII intact. No focal neurological deficits. - Psychatric: Alert & oriented x 3. Matching mood & appropriate affect. Judgment and insight intact. - Lymphatic: No Lymphadenopathy. - Musculoskeletal: Cervical spine: Vertebral body TTP over Muscle bulk/ tone/ strength in the bilateral upper extremities normal Facet loading test cervical area positive. Lumbar spine: Motor bulk/ tone/ strength lower extremities , thigh and legs : 5/5 Deep tendon reflexes : Normal Knee Jerk. Normal Ankle Jerk . 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 May need a series of injections for optimal pain relief. Risks, benefits of procedure discussed and patient verbalized understanding. Protocol for discontinuation/continuation of medications surrounding procedure discussed. All patient questions answered MAPS reviewed and it was appropriate. I have spent 31 minutes on patient care today. Dr Christine was available by phone for the evaluation of this patient. The time was used to review the medical records including relevant urine studies and Prescription history (MAPs), review of the available imaging, evaluation and examination of the patient, coordination of care with the medical staff and if applicable referring physicians, as well as creation of the medical record PQRS Narrative: Hx Alcohol Use (MH) Yes: Daily Home Medications: Ambulatory Orders Aspirin [Adult Low Dose Aspirin EC] 81 mg PO DAILY 03/18/20 Atorvastatin Calcium [Lipitor] 20 mg PO DAILY 03/18/20 Calcium Carbonate/Vitamin D3 [Calcium 600-Vit D3 100 mcg (400 Iu)] 2 tab PO DAILY 03/18/20 Multivitamins, Thera [Multivitamin (formulary)] 1 tab PO DAILY 03/18/20 Acetaminophen/Diphenhydramine [Tylenol PM 500-25mg] 2 tab PO HS PRN 04/01/20 Cholecalciferol [Vitamin D3 (125 Mcg = 5000 Iu)] 125 mcg PO DAILY 05/28/23 Ferrous Sulfate [Feosol] 325 mg PO Q48H 05/28/23 Controlled Substance Measures - Controlled Substance Measures Is patient prescribed a controlled substance at discharge?: No
== END ==
LOC: PNWHC3 12:45
PROVIDERS: ATTEND Specialist
DX: G89.29 Other chronic pain (principal); M67.48 Ganglion, other site; M54.89 Other dorsalgia; Z88.5 Allergy status to narcotic agent; Z88.0 Allergy status to penicillin
CPT/HCPCS: 99211

== ENCOUNTER 2023-07-25 07:35 | Day surgery (SDC) | payer MEDICARE ==
[2023-07-25] MEDS: LACTATED RINGERS 1,000 ML IV SCH (08:00)
[2023-07-25] MEDS: LIDOCAINE 1% (10MG/ML) FOR IV START INTRADERMA ONE (08:00)
[2023-07-25 08:17] VITALS: TEMP 97.3
[2023-07-25] MEDS ORDERED: fentaNYL (PF) 50 MCG/ML 2 ML AMP ONE (08:53)
[2023-07-25] MEDS ORDERED: DEXAMETHASONE SOD PHOSPHATE 10 MG/ML 1 ML VIAL ONE (08:53)
[2023-07-25] MEDS ORDERED: ROPIVACAINE 5MG/ML 20ML VIAL ONE (08:53)
[2023-07-25] MEDS ORDERED: MIDAZOLAM 2 MG/2 ML VIAL ONE (08:53)
--- NOTE | 2023-07-25 09:02 | P.PCN ---
Date of Procedure: 07/25/23 Procedure(s) Performed: PROCEDURES: Right Stellate ganglion block under ultrasopund guidance. PREOPERATIVE DIAGNOSIS: Complex regional pain syndrome type I Right upper extremity POSTOPERATIVE DIAGNOSIS: Same as the preop diagnosis ANESTHESIA: Moderate sedation with intravenous Versed 2 mg and Fentanyl 100 Mcg Sedation start time 08:53, ended at 09:00 EBL: None. COMPLICATIONS: None. INDICATION: The patient presents sighns ,and symptoms suggestive of CRPS of the right arm here for diagnostic and therapeutic block PROCEDURE DESCRIPTION: The patient was greeted in the preprocedure holding area. After verification of the availability of a home delivery driver and nothing by mouth status, the risks benefits and alternatives to the procedure were reviewed with the patient. Verbal informed consent was obtianed as well as a written informed consent The patient with a clinical picture consistent with complex regional pain syndrome of the right upper extremityced in the chart. Prior to the procedure time out was done verify correct patient, procedure, site, positioning. An IV line was placed preoperatively and normal saline was attached to the patient. The patient was laid supine on the stretcher. Routine monitors were applied including EKG leads, blood pressure cuff, and pulse oximetry. Ultrasound was used to identify the trachea, thyroid gland, jugular vein, carotid artery and anterior tubercle of C6 on the right side. The longus coli muscle and fascia were also clearly visible. The skin over this site was prepped and draped in the usual sterile fashion. The overlying skin and subcutaneous tissue was anesthetized with 2 mL of 0.5 % Ropivacaine using a 27-gauge needle. Then a 21-gauge 100 mm Pajunk needle was advanced under ultrasound guidance from the lateral to medial using in plane technique over the anterior tubercle of C6 until the tip was situated in the subfascial plane in the longus coli muscle. Hydrodissection with normal saline was utilized to confirm placement of the needle tip in this location. then of 10 mL of ropivacaine 0.5% ,and 20 mg of Dexmethasone was injected easily. The needle was then flushed with 1 mL of preservative free normal saline. The needle insertion site was dressed appropriately. The patient remained hemodynamically stable, and there were no complications. Patient was taken to the recovery room with her monitored for a brief period of time. Patient tolerated the procedure well and was discharged home in stable condition with post procedure instructions. Followup: repeat in 2-3 weeks
[2023-07-25] MEDS: LACTATED RINGERS 1,000 ML IV ONE (09:05)
[2023-07-25 10:12] VITALS: BP 128/76; PULSE 71; RESP 15
== END 2023-07-25 09:35 | disposition home or self-care (01) ==
LOC: ORPAIN 07:35
PROVIDERS: ATTEND Specialist
DX: G90.511 Complex regional pain syndrome I of right upper limb (principal); Z88.0 Allergy status to penicillin; Z88.5 Allergy status to narcotic agent; Z79.82 Long term (current) use of aspirin
CPT/HCPCS: 64510; J2250; J1100; J3010; J2795

== ENCOUNTER → 2023-08-19 | Outpatient (CLI) | payer MEDICARE ==
[2023-08-19 13:17] VITALS: BP 113/70; PULSE 66; RESP 16; TEMP 97.3
--- NOTE | 2023-08-22 07:39 | P.PAINPG ---
PQRS Measure Charge Sheet Comment: A 72 yr old female with a history of severe and chronic neck/face/RUE pain secondary to DDD, spondylosis and facet arthropathy without myelopathy presents today for evaluation s/p R Stellate Ganglion injection #3. Pt states she experienced 75 % pain relief x 3 wks s/p procedure. Pain level is provoked at 8 / 10 in intensity, intermittent, sharp in character w occasional shooting pain towards the RUE. Pain is provoked w laying supine in 1 position at bedtime. Pain is alleviated with injections in the past, medications, topical lidocaine patch, repositioning, stretching and rest. Cervical disability score of 28. Interventional pain procedures completed include MULTIPLE R stellate ganglion x3 (2023) Patient is currently on Ibu, Aleve, Lidoderm Patient denies any side effects of the medication(s), denies excessive drowsiness or sleepiness, denies suicidal ideation and reports that the current pain medication is helping to control the pain and improve activities of daily living. Patient denies any motor or sensory deficits. Patient denies any fever or night sweats, denies any change in the bowel movements or urination. Physical Examination: -Constitutional: Cooperative. Not in acute distress . -HEENT: Neck is supple. No lymphadenopathy. No thyromegaly. Normal thyroid size. Eyes: No ptosis , no icterus, no photophobia. ENT: No auditory deficits. Normal oropharynx. No Thrush. - Respiratory: Chest clear to auscultations bilaterally. No wheezing. No rhonchi. - Cardiovascular: Regular rate and rhythm. S1 / S2 , no S3 , no S4. - Gastrointestinal: Abdomen soft no tenderness. Bowel sounds positive in all four quadrants. No organomegaly. - Genitourinary: Deferred. - Neurologic: Cranial nerve II to XII intact. No focal neurological deficits. - Psychatric: Alert & oriented x 3. Matching mood & appropriate affect. Judgment and insight intact. - Lymphatic: No Lymphadenopathy. - Musculoskeletal: Cervical spine: Vertebral body TTP over Muscle bulk/ tone/ strength in the bilateral upper extremities normal Facet loading test cervical area positive. Lumbar spine: Motor bulk/ tone/ strength lower extremities , thigh and legs : 5/5 Deep tendon reflexes : Normal Knee Jerk. Normal Ankle Jerk . 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 May need a series of injections for optimal pain relief. Risks, benefits of procedure discussed and patient I have spent 31 minutes on patient care today. Dr Christine was available by phone for the evaluation of this patient. The time was used to review the medical records including relevant urine studies and Prescription history (MAPs), review of the available imaging, evaluation and examination of the patient, coordination of care with the medical staff and if applicable referring physicians, as well as creation of the medical record - Pain Location Right Arm Non-Pharmacological Interventions: Exercise, Inactivity, Stretching Pharmacological Interventions: Block, PRN Medication PQRS Narrative: Hx Alcohol Use (MH) Yes: Daily Home Medications: Ambulatory Orders Aspirin [Adult Low Dose Aspirin EC] 81 mg PO DAILY 03/18/20 Atorvastatin Calcium [Lipitor] 20 mg PO DAILY 03/18/20 Calcium Carbonate/Vitamin D3 [Calcium 600-Vit D3 100 mcg (400 Iu)] 2 tab PO DAILY 03/18/20 Multivitamins, Thera [Multivitamin (formulary)] 1 tab PO DAILY 03/18/20 Acetaminophen/Diphenhydramine [Tylenol PM 500-25mg] 2 tab PO HS PRN 04/01/20 Cholecalciferol [Vitamin D3 (125 Mcg = 5000 Iu)] 125 mcg PO DAILY 05/28/23 Ferrous Sulfate [Feosol] 325 mg PO Q48H 05/28/23 Unk Aleve 1 tab PO DIRECTED PRN 07/23/23 Controlled Substance Measures - Controlled Substance Measures Is patient prescribed a controlled substance at discharge?: No
== END ==
LOC: PNWHC3 12:43
PROVIDERS: ATTEND Specialist
DX: G90.50 Complex regional pain syndrome I, unspecified (principal); M54.50 Low back pain, unspecified; Z88.0 Allergy status to penicillin; Z88.5 Allergy status to narcotic agent
CPT/HCPCS: 99211

== ENCOUNTER → 2023-09-10 | Day surgery (SDC) | payer MEDICARE ==
[~2023-09-10] MED LIST changes: +DEXAMETHASONE SOD PHOSPHATE 10 MG/ML 1 ML VIAL ONE; -LACTATED RINGERS 1,000 ML IV SCH; +MIDAZOLAM 2 MG/2 ML VIAL ONE; +ROPIVACAINE 5MG/ML 20ML VIAL ONE; +fentaNYL (PF) 50 MCG/ML 2 ML AMP ONE
[2023-09-10] MEDS: LACTATED RINGERS 1,000 ML IV SCH (06:50)
[2023-09-10] MEDS: IV FLUID CONTINUATION 1,000 ML IV ONE ×2 (06:50→08:03)
[2023-09-10 06:53] VITALS: RESP 16; TEMP 98
--- NOTE | 2023-09-10 07:59 | P.PCN ---
Date of Procedure: 09/10/23 Procedure(s) Performed: PROCEDURES: Right Stellate ganglion block under ultrasopund guidance. PREOPERATIVE DIAGNOSIS: Complex regional pain syndrome type I Right upper extremity POSTOPERATIVE DIAGNOSIS: Same as the preop diagnosis ANESTHESIA: Moderate sedation with intravenous Versed 2 mg and Fentanyl 100 Mcg Sedation start time 07:48, ended at 07:56 EBL: None. COMPLICATIONS: None. INDICATION: The patient presents sighns ,and symptoms suggestive of CRPS of the right arm here for diagnostic and therapeutic block PROCEDURE DESCRIPTION: The patient was greeted in the preprocedure holding area. After verification of the availability of a frontload driver and nothing by mouth status, the risks benefits and alternatives to the procedure were reviewed with the patient. Verbal informed consent was obtianed as well as a written informed consent The patient with a clinical picture consistent with complex regional pain syndrome of the right upper extremityced in the chart. Prior to the procedure time out was done verify correct patient, procedure, site, positioning. An IV line was placed preoperatively and normal saline was attached to the patient. The patient was laid supine on the stretcher. Routine monitors were applied including EKG leads, blood pressure cuff, and pulse oximetry. Ultrasound was used to identify the trachea, thyroid gland, jugular vein, carotid artery and anterior tubercle of C6 on the right side. The longus coli muscle and fascia were also clearly visible. The skin over this site was prepped and draped in the usual sterile fashion. The overlying skin and subcutaneous tissue was anesthetized with 2 mL of 0.5 % Ropivacaine using a 27-gauge needle. Then a 21-gauge 100 mm Pajunk needle was advanced under ultrasound guidance from the lateral to medial using in plane technique over the anterior tubercle of C6 until the tip was situated in the subfascial plane in the longus coli muscle. Hydrodissection with normal saline was utilized to confirm placement of the needle tip in this location. then of 10 mL of ropivacaine 0.5% ,and 20 mg of Dexmethasone was injected easily. The needle was then flushed with 1 mL of preservative free normal saline. The needle insertion site was dressed appropriately. The patient remained hemodynamically stable, and there were no complications. Patient was taken to the recovery room with her monitored for a brief period of time. Patient tolerated the procedure well and was discharged home in stable condition with post procedure instructions. Followup: repeat in 2-3 weeks
[2023-09-10 08:35] VITALS: BP 124/74; PULSE 70
== END ==
LOC: ORPAIN 06:28
PROVIDERS: ATTEND Specialist
DX: G90.511 Complex regional pain syndrome I of right upper limb (principal); G90.50 Complex regional pain syndrome I, unspecified; Z88.0 Allergy status to penicillin; Z88.5 Allergy status to narcotic agent; Z79.82 Long term (current) use of aspirin; Z79.899 Other long term (current) drug therapy; Z87.891 Personal history of nicotine dependence
CPT/HCPCS: 64510; J2250; J1100; J3010; J2795

== ENCOUNTER → 2023-09-25 | Outpatient (CLI) | payer MEDICARE ==
[2023-09-25 11:53] VITALS: BP 131/67; PULSE 68; RESP 16
--- NOTE | 2023-09-25 14:22 | P.PAINPG ---
PQRS Measure Charge Sheet Comment: A 72 yr old female with a history of severe and chronic neck/face/RUE pain secondary to DDD, spondylosis and facet arthropathy without myelopathy presents today for evaluation s/p R Stellate Ganglion injection #4. Pt states she experienced 90 % pain relief x 2 wks s/p procedure. Pain level is provoked at 6 / 10 in intensity, intermittent, sharp in character w occasional shooting pain towards the RUE. Pain is provoked w laying supine in 1 position at bedtime. Pain is alleviated with injections in the past, medications, topical lidocaine patch, repositioning, stretching and rest. Cervical disability score of 28. Interventional pain procedures completed include MULTIPLE R stellate ganglion x4 (2023) Patient is currently on Ibu, Aleve, Lidoderm Patient denies any side effects of the medication(s), denies excessive drowsiness or sleepiness, denies suicidal ideation and reports that the current pain medication is helping to control the pain and improve activities of daily living. Patient denies any motor or sensory deficits. Patient denies any fever or night sweats, denies any change in the bowel movements or urination. Physical Examination: -Constitutional: Cooperative. Not in acute distress . -HEENT: Neck is supple. No lymphadenopathy. No thyromegaly. Normal thyroid size. Eyes: No ptosis , no icterus, no photophobia. ENT: No auditory deficits. Normal oropharynx. No Thrush. - Respiratory: Chest clear to auscultations bilaterally. No wheezing. No rhonchi. - Cardiovascular: Regular rate and rhythm. S1 / S2 , no S3 , no S4. - Gastrointestinal: Abdomen soft no tenderness. Bowel sounds positive in all four quadrants. No organomegaly. - Genitourinary: Deferred. - Neurologic: Cranial nerve II to XII intact. No focal neurological deficits. - Psychatric: Alert & oriented x 3. Matching mood & appropriate affect. Judgment and insight intact. - Lymphatic: No Lymphadenopathy. - Musculoskeletal: Cervical spine: Vertebral body TTP over Muscle bulk/ tone/ strength in the bilateral upper extremities normal Facet loading test cervical area positive. Lumbar spine: Motor bulk/ tone/ strength lower extremities , thigh and legs : 5/5 Deep tendon reflexes : Normal Knee Jerk. Normal Ankle Jerk . 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 Lidoderm 5% #30 w 1 RF. Use, side effects, adverse reactions, safe storage discussed. All questions answered. I have spent 31 minutes on patient care today. Dr Christine was available by phone for the evaluation of this patient. The time was used to review the medical records including relevant urine studies and Prescription history (MAPs), review of the available imaging, evaluation and examination of the patient, coordination of care with the medical staff and if applicable referring physicians, as well as creation of the medical record PQRS Narrative: Hx Alcohol Use (MH) Yes: Daily Home Medications: Ambulatory Orders Aspirin [Adult Low Dose Aspirin EC] 81 mg PO DAILY 03/18/20 Atorvastatin Calcium [Lipitor] 20 mg PO DAILY 03/18/20 Calcium Carbonate/Vitamin D3 [Calcium 600-Vit D3 100 mcg (400 Iu)] 2 tab PO DAILY 03/18/20 Multivitamins, Thera [Multivitamin (formulary)] 1 tab PO DAILY 03/18/20 Acetaminophen/Diphenhydramine [Tylenol PM 500-25mg] 2 tab PO HS PRN 04/01/20 Cholecalciferol [Vitamin D3 (125 Mcg = 5000 Iu)] 125 mcg PO DAILY 05/28/23 Ferrous Sulfate [Feosol] 325 mg PO Q48H 05/28/23 Unk Aleve 1 tab PO DIRECTED PRN 07/23/23 Ibuprofen [Motrin Ib] 400 mg PO Q6H PRN 09/09/23 Lidocaine 5% Patch [Lidoderm] 1 each TP DAILY 30 Days #30 each 09/25/23 Controlled Substance Measures - Controlled Substance Measures Is patient prescribed a controlled substance at discharge?: No
== END ==
LOC: PNWHC3 11:13
PROVIDERS: ATTEND Specialist
DX: G90.50 Complex regional pain syndrome I, unspecified (principal); M67.48 Ganglion, other site; Z88.5 Allergy status to narcotic agent; Z88.0 Allergy status to penicillin
CPT/HCPCS: 99211

== ENCOUNTER → 2024-05-27 | Outpatient (CLI) | payer MEDICARE ==
[2024-05-27 10:50] VITALS: BP 143/78; PULSE 76; RESP 19; TEMP 97.6
--- NOTE | 2024-05-27 14:59 | P.PAINPG ---
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 Pain level is provoked at 8 / 10 in intensity, intermittent, sharp in character w occasional shooting pain towards the R arm. Pain is provoked w over activity. Pain is alleviated with injections, manual massage, medications, topical, repositioning, stretching and rest. Interventional pain procedures completed include MULTIPLE R stellate ganglion x4 (2023) Patient is currently on Ibu, Aleve, Lidoderm Patient denies any side effects of the medication(s), denies excessive drowsiness or sleepiness, denies suicidal ideation and reports that the current pain medication is helping to control the pain and improve activities of daily living. Patient denies any motor or sensory deficits. Patient denies any fever or night sweats, denies any change in the bowel movements or urination. Physical Examination: -Constitutional: Cooperative. Not in acute distress . -HEENT: Neck is supple. No lymphadenopathy. No thyromegaly. Normal thyroid size. Eyes: No ptosis , no icterus, no photophobia. ENT: No auditory deficits. Normal oropharynx. No Thrush. - Respiratory: Chest clear to auscultations bilaterally. No wheezing. No rhonchi. - Cardiovascular: Regular rate and rhythm. S1 / S2 , no S3 , no S4. - Gastrointestinal: Abdomen soft no tenderness. Bowel sounds positive in all four quadrants. No organomegaly. - Genitourinary: Deferred. - Neurologic: Cranial nerve II to XII intact. No focal neurological deficits. - Psychatric: Alert & oriented x 3. Matching mood & appropriate affect. Judgment and insight intact. - Lymphatic: No Lymphadenopathy. - Musculoskeletal: Cervical spine: Vertebral body TTP over Muscle bulk/ tone/ strength in the bilateral upper extremities normal Facet loading test cervical area positive. Lumbar spine: Motor bulk/ tone/ strength lower extremities , thigh and legs : 5/5 Deep tendon reflexes : Normal Knee Jerk. Normal Ankle Jerk . 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 Risks, benefits of procedure discussed and patient verbalized understanding. Protocol for discontinuation/continuation of medication surrounding procedure discussed. Minimal anesthesia including fentanyl and Versed if clinically indicated. Ample supply of Lidoderm 5% #30 on hand. Use, side effects, adverse reactions, safe storage discussed. All questions answered. I have spent 31 minutes on patient care today. Dr Christine was available by phone for the evaluation of this patient. The time was used to review the medical records including relevant urine studies and Prescription history (MAPs), review of the available imaging, evaluation and examination of the pat ient, coordination of care with the medical staff and if applicable referring physicians, as well as creation of the medical record - Pain Location Right Arm Pharmacological Interventions: Epidural PQRS Narrative: Blood Pressure 143/78 Pain Intensity [Right Arm] 8 Scale Used Numeric (1 - 10) Hx Alcohol Use (MH) Yes: Daily Home Medications: Ambulatory Orders Aspirin [Adult Low Dose Aspirin EC] 81 mg PO DAILY 03/18/20 Atorvastatin Calcium [Lipitor] 20 mg PO DAILY 03/18/20 Calcium Carbonate/Vitamin D3 [Calcium 600-Vit D3 100 mcg (400 Iu)] 2 tab PO DAILY 03/18/20 Multivitamins, Thera [Multivitamin (formulary)] 1 tab PO DAILY 03/18/20 Acetaminophen/Diphenhydramine [Tylenol PM 500-25mg] 2 tab PO HS PRN 04/01/20 Cholecalciferol [Vitamin D3 (125 Mcg = 5000 Iu)] 125 mcg PO DAILY 05/28/23 Ferrous Sulfate [Feosol] 325 mg PO Q48H 05/28/23 Unk Aleve 1 tab PO DIRECTED PRN 07/23/23 Ibuprofen [Motrin Ib] 400 mg PO Q6H PRN 09/09/23 Lidocaine 5% Patch [Lidoderm] 1 each TP DAILY 30 Days #30 each 09/25/23 Controlled Substance Measures - Controlled Substance Measures Is patient prescribed a controlled substance at discharge?: No
== END ==
LOC: PNWHC3 10:36
PROVIDERS: ATTEND Specialist
DX: G62.9 Polyneuropathy, unspecified (principal); Z88.5 Allergy status to narcotic agent; Z88.0 Allergy status to penicillin
CPT/HCPCS: 99211

== ENCOUNTER → 2024-06-11 | Day surgery (SDC) | payer MEDICARE ==
[2024-06-10 08:56] VITALS: BMI 23.9
[~2024-06-11] MED LIST changes: +LACTATED RINGERS 1,000 ML IV SCH
[2024-06-11] MEDS: IV FLUID CONTINUATION 1,000 ML IV ONE ×2 (07:48→08:50)
[2024-06-11 07:51] VITALS: TEMP 98
--- NOTE | 2024-06-11 08:49 | P.PCN ---
Description of Procedure: ROCEDURES: Right Stellate ganglion block with ultrasound guidance. PREOPERATIVE DIAGNOSIS: 1- RUE CRPS (type I) POSTOPERATIVE DIAGNOSIS: Same ANESTHESIA: Versed 4 mg. Fentanyl 100 microgram with 1% lidocaine subcutaneously. Time start 822 .End 838 . EBL: None. COMPLICATIONS: None. INDICATION: The patient presents long history of signs and symptoms suggestive of CRPS of the right arm, presents today for right stellate ganglion block, #1 in this series. Patient has had inability to do physical therapy due to pain and presents for SGB today. No use of blood thinners. Pain OR, continuous pulse ox, EKG, blood pressure and verbal communication was maintained with the patient. PROCEDURE DESCRIPTION: The patient was seen and identified in the preoperative area. Risks, benefits, complications, and alternatives were discussed with the patient, with risks including but not limited to hoarseness, local anesthetic toxicity, bleeding, infection, nerve damage, allergic reactions to medications, and incomplete pain relief. The patient agreed to proceed with the procedure and signed the informed consent after all questions were answered. IV was started and vital signs were stable. Patient was brought to the procedure room and placed in the supine position with a shoulder roll to improve extension of the neck. Cervical area anteriorly was prepped and draped in the usual sterile fashion with focus on the right side of the neck. Using a linear ultrasound probe and sterile cover, the thyroid gland and carotid artery were identified, as was the vertebral artery. The ultrasound was moved cephalad to identify the [place]ac's tubercle . signifying the C6 level. After localization with 2 ml of 1% lidocaine plain, a 21 gauge 2 inch quincke Pujung needle was directed behind the carotid artery and anterior to the longus coli muscle and it's covering fascia. After negative aspiration for CSF or blood and in the absence of paresthesias, solution was injected incrementally with frequent aspiration anterior to the longus colli muscle. Block solution contained 8 mL of 0.25% Ropivacaine preservative free mixed with 10 mg Dexamethasone . Needle was removed intact, skin was cleansed, and bandages were applied. COMPLICATIONS: None. A copy of needle placement was saved to the ultrasound machine and printed out for the patient's records. The patient tolerated the procedure well without complications and had excellent pain relief immediately after the procedure, along with warmth in his right upper extremity. After re-examination, she was discharged home after the procedure after he met all discharge criteria. . She will go to physical therapy today and will be seen in the clinic in a few weeks.
[2024-06-11 09:13] VITALS: BP 129/78; PULSE 78; RESP 16
== END ==
LOC: ORPAIN 06:51
PROVIDERS: ATTEND Pain Medicine Interventional Pain Medicine
DX: G90.511 Complex regional pain syndrome I of right upper limb (principal); Z88.0 Allergy status to penicillin; Z88.5 Allergy status to narcotic agent
CPT/HCPCS: 64510; J2250; J1100; J3010; J2795; 99152

== ENCOUNTER → 2024-08-12 | Outpatient (CLI) | payer MEDICARE ==
[2024-08-12 10:00] VITALS: BP 120/71; PULSE 64; RESP 16; TEMP 97.6
--- NOTE | 2024-08-12 16:03 | P.PAINPG ---
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 Pt states she experienced 90 % pain relief x 1 mo s/p procedure. Pain level is provoked at 6-7 / 10 in intensity, intermittent, sharp in character w occasional shooting pain towards the R arm. Pain is provoked w over activity. Pain is alleviated with injections, manual massage, medications, topical, repositioning, stretching and rest. Interventional pain procedures completed include R stellate ganglion x5 (2023, 06/26) Patient is currently on Ibu, Aleve, Lidoderm Patient denies any side effects of the medication(s), denies excessive drowsiness or sleepiness, denies suicidal ideation and reports that the current pain medication is helping to control the pain and improve activities of daily living. Patient denies any motor or sensory deficits. Patient denies any fever or night sweats, denies any change in the bowel movements or urination. Physical Examination: -Constitutional: Cooperative. Not in acute distress . -HEENT: Neck is supple. No lymphadenopathy. No thyromegaly. Normal thyroid size. Eyes: No ptosis , no icterus, no photophobia. ENT: No auditory deficits. Normal oropharynx. No Thrush. - Respiratory: Chest clear to auscultations bilaterally. No wheezing. No rhonchi. - Cardiovascular: Regular rate and rhythm. S1 / S2 , no S3 , no S4. - Gastrointestinal: Abdomen soft no tenderness. Bowel sounds positive in all four quadrants. No organomegaly. - Genitourinary: Deferred. - Neurologic: Cranial nerve II to XII intact. No focal neurological deficits. - Psychatric: Alert & oriented x 3. Matching mood & appropriate affect. Judgment and insight intact. - Lymphatic: No Lymphadenopathy. - Musculoskeletal: Cervical spine: Vertebral body TTP over Muscle bulk/ tone/ strength in the bilateral upper extremities normal Facet loading test cervical area positive. Lumbar spine: Motor bulk/ tone/ strength lower extremities , thigh and legs : 5/5 Deep tendon reflexes : Normal Knee Jerk. Normal Ankle Jerk . 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 Risks, benefits of procedure discussed and patient verbalized understanding. Protocol for discontinuation/continuation of medication surrounding procedure discussed. Minimal anesthesia including fentanyl and Versed if clinically indicated. Ample supply of Lidoderm 5% #30 on hand. Use, side effects, adverse reactions, safe storage discussed. All questions answered. I have spent 31 minutes on patient care today. Dr Christine was available by phone for the evaluation of this patient. The time was used to review the medical records including relevant urine studies and Prescription history (MAPs ), review of the available imaging, evaluation and examination of the patient, coordination of care with the medical staff and if applicable referring physicians, as well as creation of the medical record - Pain Location Right Arm Non-Pharmacological Interventions: Chiropractic Treatment, Home Exercise, Physical Therapy Pharmacological Interventions: Epidural, PRN Medication PQRS Narrative: Hx Alcohol Use (MH) Yes: Daily Home Medications: Ambulatory Orders Aspirin [Adult Low Dose Aspirin EC] 81 mg PO QAM 03/18/20 Calcium Carbonate/Vitamin D3 [Calcium 600-Vit D3 100 mcg (400 Iu)] 2 tab PO QAM 03/18/20 Multivitamins, Thera [Multivitamin (formulary)] 1 tab PO QAM 03/18/20 Acetaminophen/Diphenhydramine [Tylenol PM 500-25mg] 2 tab PO HS PRN 04/01/20 Cholecalciferol [Vitamin D3 (125 Mcg = 5000 Iu)] 125 mcg PO QAM 05/28/23 Ferrous Sulfate [Feosol] 325 mg PO Q48H 05/28/23 Unk Aleve 1 tab PO DIRECTED PRN 07/23/23 Diclofenac Sodium [Aspercreme Arthritis Pain] 1 applic TOPICAL QAM PRN 06/10/24 Fish Oil/Omega3 1 dose PO QAM 06/10/24 Lidocaine 5% Patch [Lidoderm] 1 each TP HS PRN 06/10/24 Controlled Substance Measures - Controlled Substance Measures Is patient prescribed a controlled substance at discharge?: No
== END ==
LOC: PNWHC3 09:37
PROVIDERS: ATTEND Specialist
DX: H57.11 Ocular pain, right eye (principal); G62.9 Polyneuropathy, unspecified; Z88.5 Allergy status to narcotic agent; Z88.0 Allergy status to penicillin
CPT/HCPCS: 99211

== ENCOUNTER 2024-09-17 07:30 | Day surgery (SDC) | payer MEDICARE ==
[2024-09-15 14:41] VITALS: BMI 21.7
[2024-09-17 08:30] VITALS: RESP 16; TEMP 97.3
[2024-09-17] MEDS: IV FLUID CONTINUATION 1,000 ML IV ONE ×2 (08:43→10:19)
[2024-09-17] MEDS: LACTATED RINGERS 1,000 ML IV SCH (08:44)
[2024-09-17] MEDS ORDERED: ROPIVACAINE 5 MG/ML 30 ML VIAL ONE (09:46)
[2024-09-17] MEDS ORDERED: fentaNYL (PF) 50 MCG/ML 2 ML AMP ONE (09:46)
[2024-09-17] MEDS ORDERED: DEXAMETHASONE SOD PHOSPHATE 10 MG/ML 1 ML VIAL ONE (09:46)
[2024-09-17] MEDS ORDERED: MIDAZOLAM 2 MG/2 ML VIAL ONE (09:46)
--- NOTE | 2024-09-17 10:14 | P.PCN ---
Description of Procedure: PROCEDURES: Right stellate ganglion block with ultrasound guidance. PREOPERATIVE DIAGNOSIS: Complex regional pain syndrome. POSTOPERATIVE DIAGNOSIS: Same ANESTHESIA: IV sedation with Versed 3 milligram and fentanyl 150 microgram. In OR, continuous pulse ox, EKG, blood pressure was monitored along with continuous verbal communication. Time. Start 0946 . Stop 1002 . EBL: None. COMPLICATIONS: None. INDICATION: The patient presents long history of signs and symptoms suggestive of CRPS Patient has had inability to do physical therapy due to pain and presents for SGB today. No use of blood thinners. The patient was seen and identified in the preoperative area. Risks, benefits, complications, and alternatives were discussed with the patient, with risks including but not limited to hoarseness, Jacqueline's syndrome, local anesthetic toxicity, bleeding, infection, nerve damage, allergic reactions to medications, and incomplete pain relief. The patient agreed to proceed with the procedure and signed the informed consent after all questions were answered. IV was started and vital signs were stable. Procedure note . Patient was brought to the procedure room and placed in the supine position with a shoulder roll to improve extension of the neck. Cervical area anteriorly was prepped and draped in the usual sterile fashion with focus on the neck. Using a linear ultrasound probe and sterile cover, the thyroid gland and carotid artery were identified, as was the vertebral artery. The ultrasound was moved cephalad to identify the Chassaignac's tubercle . signifying the C6 level. After localization with 2 ml of 1% lidocaine plain, a 21 gauge 2 inch quincke Pujunk needle was directed behind the carotid artery and anterior to the longus coli muscle and deep to the fascia. After negative aspiration for CSF or blood and in the absence of paresthesias, solution was injected incrementally with frequent aspiration anterior to the longus colli muscle. Block solution contained 8 mL of 0.25% Ropivacaine preservative free mixed with 10 mg Dexamethasone . Needle was removed intact, skin was cleansed, and bandages were applied. Disposition. A copy of needle placement was saved to the ultrasound machine and printed out for the patient's records. The patient tolerated the procedure well without complications and had excellent pain relief immediately after the procedure, along with warmth in his right upper extremity. After re-examination, she was discharged home after the procedure after he met all discharge criteria. . She will go to physical therapy today and will be seen in the clinic in a few weeks.
[2024-09-17 10:36] VITALS: BP 115/80; PULSE 79
== END 2024-09-17 10:53 | disposition home or self-care (01) ==
LOC: ORPAIN 07:30
PROVIDERS: ATTEND Pain Medicine Interventional Pain Medicine
DX: G90.50 Complex regional pain syndrome I, unspecified (principal)
CPT/HCPCS: 64510; J2250; J1100; J3010; J2795; 99152